=== PATIENT | male | born 1945 | race Hispanic/Latino ===

== ENCOUNTER 2016-08-25 13:22 | Emergency (ER) | payer MEDICARE ==
[2016-08-25] MEDS ORDERED: Sodium Chloride 0.9% 500 ML IV STA (13:25)
[2016-08-25 13:28] VITALS: BP 190/78; PULSE 93; RESP 18; TEMP 98.3; O2SAT 96; BMI 44.0
--- NOTE | 2016-08-25 13:32 | ED PDOC ---
Arrival/HPI - General Time Seen by Provider: 08/25/16 13:23 Historian: Patient - History of Present Illness Narrative History of Present Illness (Text): 08/25/16 13:26 71 year old male whose past medical history includes CABG, hypertension, diabetes, presents to the emergency department with elevated blood sugar today. Patient reports he checked his blood sugar right after a meal and it was found to be 480 at home. Denies fever, nausea, vomiting, chest pain, or other complaints. Time/Duration: 24 hours Symptom Onset: Gradual Symptom Course: Unchanged Modifying Factors (Text): None Past Medical History - Provider Review Nursing Documentation Reviewed: Yes - Infectious Disease Hx of Infectious Diseases: None - Tetanus Immunization Tetanus Immunization: Unknown - Cardiac Hx Hypertension: Yes Hx Pacemaker: No - Pulmonary Hx Respiratory Disorders: No - Neurological Hx Paralysis: No - HEENT Hx HEENT Disorder: No - Renal Hx Renal Disorder: No Hx Dialysis: No Other/Comment: bladder ca - Endocrine/Metabolic Hx Diabetes Mellitus Type 2: Yes - Hematological/Oncological Hx Blood Transfusions: No Hx Blood Transfusion Reaction: No - Integumentary Hx Dermatological Disorder: No - Musculoskeletal/Rheumatological Hx Musculoskeletal Disorders: No - Gastrointestinal Hx Gastrointestinal Disorders: No - Genitourinary/Gynecological Hx Genitourinary Disorders: No - Psychiatric Hx Depression: No Hx Emotional Abuse: No Hx Physical Abuse: No Hx Substance Use: No - Past Surgical History Past Surgical History: Non-Contributing - Surgical History Hx Cardiac Catheterization: Yes Hx Coronary Stent: Yes - Anesthesia Hx Anesthesia Reactions: No Hx Malignant Hyperthermia: No - Suicidal Assessment Feels Threatened In Home Enviroment: No Family/Social History - Physician Review Nursing Documentation Reviewed: Yes Family/Social History: Unknown Family HX Smoking Status: Former Smoker Hx Alcohol Use: No Hx Substance Use: No Hx Substance Use Treatment: No Allergies/Home Meds Allergies/Adverse Reactions: Allergies No Known Allergies Allergy (Verified 10/17/13 03:14) Home Medications: Home Meds Medication Instructions Recorded Confirmed Amlodipine Besylate 10 mg PO DAILY 07/10/13 08/01/14 Aspirin [Ecotrin] 81 mg PO DAILY 07/10/13 08/01/14 Insulin Detemir [Levemir] 80 unit SC HS 07/10/13 08/01/14 Insulin Lispro [humALOG] 60 units SC ACBD 07/10/13 08/01/14 Valsartan [Diovan] 320 mg PO DAILY 07/10/13 08/01/14 Clopidogrel [Plavix] 75 mg PO DAILY 08/18/13 08/01/14 Finasteride 5 mg PO DAILY 08/18/13 08/01/14 Dexlansoprazole [Dexilant] 60 mg PO DAILY 07/29/14 08/01/14 Atorvastatin [Lipitor] 40 mg PO DAILY 08/01/14 08/01/14 MetFORMIN [glucOPHAGE] 1,000 mg PO BID 08/01/14 08/01/14 [id number] Ethyl Esters [Lovaza] 1 gm PO BID 08/01/14 08/01/14 Pregabalin [Lyrica] 150 mg PO TID 08/01/14 08/01/14 Review of Systems - Physician Review All systems were reviewed & negative as marked: Yes - Review of Systems Constitutional: absent: Fevers Respiratory: absent: SOB Cardiovascular: absent: Chest Pain Gastrointestinal: absent: Nausea, Vomiting Physical Exam Vital Signs Reviewed: Yes Vital Signs Temp Pulse Resp BP Pulse Ox 08/25/16 13:26 98.3 F 93 H 18 190/78 H 96 Temperature: Afebrile Blood Pressure: Hypertensive Pulse: Regular Respiratory Rate: Normal Appearance: Positive for: Well-Appearing, Non-Toxic, Comfortable Pain Distress: None Mental Status: Positive for: Alert and Oriented X 3 - Systems Exam Head: Present: Atraumatic, Normocephalic Pupils: Present: PERRL Extroacular Muscles: Present: EOMI Conjunctiva: Present: Normal Mouth: Present: Moist Mucous Membranes Neck: Present: Normal Range of Motion Respiratory/Chest: Present: Clear to Auscultation, Good Air Exchange. No: Respiratory Distress, Accessory Muscle Use Cardiovascular: Present: Regular Rate and Rhythm, Normal S1, S2. No: Murmurs Abdomen: Present: Normal Bowel Sounds. No: Tenderness, Distention, Peritoneal Signs Back: Present: Normal Inspection Upper Extremity: Present: Normal Inspection. No: Cyanosis, Edema Lower Extremity: Present: Other (2 cm small wound to the right lower leg with minimal surrounding erythema.). No: Edema Neurological: Present: GCS=15, CN II-XII Intact, Speech Normal Skin: Present: Warm, Dry, Normal Color. No: Rashes Psychiatric: Present: Alert, Oriented x 3, Normal Insight, Normal Concentration Medical Decision Making ED Course and Treatment: Impression: 71 year old male whose past medical history includes CABG, hypertension, diabetes, presents to the emergency department with elevated blood sugar today. Plan: -- EKG -- Labs -- IV fluids -- Reassess and disposition Progress Notes: 08/25/16 13:33 Patient refusing labwork. Patient wants to be observed and have his sugar rechecked. 08/25/16 14:59 pt observed. blood sugar about the same, again requested pt be eval to r/o dka. refuses asking for d/c. pt advised risk of leaving. signs Leaving Against Medical Advice (AMA): The patient is choosing to leave against medical advice. I have personally explained to the patient that choosing to do so may result in permanent bodily harm or . I have discussed at great length that without further evaluation and monitoring there may be unforeseen circumstances and/or deterioration causing permanent bodily harm or as a result of their choice. The patient is alert, oriented, and shows the mental capacity to make clear decisions regarding the patients health care at this time. The patient continues to wish to leave against medical advice. In light of the patients decision to leave against medical advice, follow-up has been arranged and the patient is aware of the importance to following up as instructed. The patient has been advised that they should return to the emergency room immediately if they change their mind at any time, or if their condition begins to change or worsen in any way.. - Medication Orders Current Medication Orders: Discontinued Medications Sodium Chloride (Sodium Chloride 0.9%) 500 mls @ 999 mls/hr IV .Q31M STA Stop: 08/25/16 13:55 Last Admin: 08/25/16 13:30 Dose: Not Given Non-Admin Reason: Patient Refused - Scribe Statement The provider has reviewed the documentation as recorded by the Cassy Liao Provider Scribe Attestation: All medical record entries made by the Goyoibkaran were at my direction and personally dictated by me. I have reviewed the chart and agree that the record accurately reflects my personal performance of the history, physical exam, medical decision making, and the department course for this patient. I have also personally directed, reviewed, and agree with the discharge instructions and disposition. Disposition/Present on Arrival - Present on Arrival Any Indicators Present on Arrival: No History of DVT/PE: No History of Uncontrolled Diabetes: No Urinary Catheter: No History Surgical Site Infection Following: None - Disposition Have Diagnosis and Disposition been Completed?: Yes Diagnosis: Hyperglycemia, Cellulitis, Left against medical advice Disposition: AGAINST MEDICAL ADVICE Disposition Time: 15:00 Condition: UNKNOWN Discharge Instructions (ExitCare): Cellulitis (ED), Diabetic Hyperglycemia (ED) , Against Medical Advice (ED) Additional Instructions: please follow up with your doctor and diabetes doctor. return to emergency room with wrosening symptoms or concerns. you are leaving against medical advice. you are able to return at any point with any concern.
== END 2016-08-25 15:18 | disposition left against medical advice (07) ==
LOC: ED 13:22
DX: E11.65 Type 2 diabetes mellitus with hyperglycemia (principal); L03.115 Cellulitis of right lower limb

== ENCOUNTER 2017-01-09 19:23 | Observation (INO) | payer MEDICARE ==
[2017-01-09 20:19] LABS: BASO # 0.02 K/mm3 (0.0-2.0); BASO % 0.3 % (0.0-3.0); EOS # 0.1 (0.0-0.7); EOS % 1.3 % (1.5-5.0); GRAN # 4.55 (1.4-6.5); GRAN % 67.7 % (50.0-68.0); HEMATOCRIT 35.9 % (42.0-52.0); LYMPH # 1.5 (1.2-3.4); LYMPH % 22.1 % (22.0-35.0); MEAN CELL VOLUME 84.9 fl (80.0-105.0); MEAN CORPUSCULAR HEMOGLOBIN 28.1 pg (25.0-35.0); MEAN CORPUSCULAR HGB CONC 33.1 g/dl (31.0-37.0); MEAN PLATELET VOLUME 9.4 fl (7.0-11.0); MONO # 0.6 (0.1-0.6); MONO % 8.6 % (1.0-6.0); WHITE BLOOD COUNT 6.7 10^3/ul (4.5-11.0)
[2017-01-09 20:20] LABS: VENOUS BLOOD PH 7.36 (7.32-7.43)
[2017-01-09 20:29] LABS: ALB/GLOB RATIO 1.4 (1.1-1.8); ALKALINE PHOSPHATASE 108 U/L (38-126); ALT/SGPT 60 U/L (7-56); AST/SGOT 60 U/L (17-59); BILIRUBIN,TOTAL 0.4 mg/dL (0.2-1.3); BLOOD UREA NITROGEN 33 mg/dL (7-21); CALCIUM 9.4 mg/dL (8.4-10.5); CARBON DIOXIDE 28 mmol/L (21-33); CHLORIDE 101 mmol/L (98-107); GFR AFRICAN-AMERICAN > 60; GLUCOSE,RANDOM 241 mg/dL (70-110); POTASSIUM 3.8 mmol/L (3.6-5.0); SODIUM 137 mmol/L (132-148); TOTAL PROTEIN 7.1 g/dL (5.8-8.3)
[2017-01-09 20:41] LABS: TROPONIN I 0.05 ng/mL
--- NOTE | 2017-01-09 21:16 | ED PDOC ---
Arrival/HPI - General Chief Complaint: Chest Pain Time Seen by Provider: 01/09/17 19:26 Historian: Patient - History of Present Illness Narrative History of Present Illness (Text): 01/09/17 19:45 Jaziel Levine is a 71 year old male, whose past medical history includes hypertension, IDDM, hyperlipidemia, diabetic neuropathy, carotid endartectomy, and bladder cancer, who presents to the Emergency department complaining of shortness of breath, chest tightness, and a "fluttering" sensation in his chest today. Patient denies any fever, chills, nausea, vomiting, diarrhea, urinary symptoms, back pain, neck pain, headache, dizziness, or any other complaints. PMD: Dr. Carney Time/Duration: Other (today) Symptom Onset: Gradual Symptom Course: Unchanged Quality: Tightness Activities at Onset: Light Context: Home Past Medical History - Provider Review Nursing Documentation Reviewed: Yes - Infectious Disease Hx of Infectious Diseases: None - Tetanus Immunization Tetanus Immunization: Unknown - Cardiac Hx Hypertension: Yes Hx Pacemaker: No - Pulmonary Hx Respiratory Disorders: No - Neurological Hx Paralysis: No - HEENT Hx HEENT Disorder: No - Renal Hx Renal Disorder: No Hx Dialysis: No Other/Comment: bladder ca - Endocrine/Metabolic Hx Diabetes Mellitus Type 2: Yes - Hematological/Oncological Hx Blood Transfusions: No Hx Blood Transfusion Reaction: No - Integumentary Hx Dermatological Disorder: No - Musculoskeletal/Rheumatological Hx Musculoskeletal Disorders: No - Gastrointestinal Hx Gastrointestinal Disorders: No - Genitourinary/Gynecological Hx Genitourinary Disorders: No - Psychiatric Hx Depression: No Hx Emotional Abuse: No Hx Physical Abuse: No Hx Substance Use: No - Past Surgical History Past Surgical History: Non-Contributing - Surgical History Hx Cardiac Catheterization: Yes Hx Coronary Stent: Yes - Anesthesia Hx Anesthesia Reactions: No Hx Malignant Hyperthermia: No - Suicidal Assessment Feels Threatened In Home Enviroment: No Family/Social History - Physician Review Nursing Documentation Reviewed: Yes Family/Social History: Unknown Family HX Smoking Status: Former Smoker Hx Alcohol Use: No Hx Substance Use: No Hx Substance Use Treatment: No Allergies/Home Meds Allergies/Adverse Reactions: Allergies No Known Allergies Allergy (Verified 10/17/13 03:14) Home Medications: Home Meds Medication Instructions Recorded Confirmed Unobtainable 01/09/17 01/09/17 Review of Systems - Physician Review All systems were reviewed & negative as marked: Yes - Review of Systems Constitutional: Normal. absent: Fevers Eyes: Normal ENT: Normal Respiratory: SOB. absent: Cough Cardiovascular: Chest Pain, Palpitations Gastrointestinal: Normal. absent: Abdominal Pain, Diarrhea, Nausea, Vomiting Genitourinary Male: Normal. absent: Dysuria, Frequency, Hematuria, Urinary Output Changes Musculoskeletal: Normal. absent: Back Pain, Neck Pain Skin: Normal. absent: Rash Neurological: Normal. absent: Headache, Dizziness Endocrine: Normal Hemo/Lymphatic: Normal Psychiatric: Normal Physical Exam Vital Signs Reviewed: Yes Vital Signs Temp Pulse Resp BP Pulse Ox 01/09/17 22:45 63 16 159/76 H 98 01/09/17 21:45 60 16 134/69 97 01/09/17 20:45 86 20 146/92 H 97 01/09/17 19:36 98.3 F 74 18 158/89 H 98 Temperature: Afebrile Blood Pressure: Hypertensive Pulse: Regular Respiratory Rate: Normal Appearance: Positive for: Well-Appearing, Non-Toxic, Comfortable Pain Distress: None Mental Status: Positive for: Alert and Oriented X 3 - Systems Exam Head: Present: Atraumatic, Normocephalic Pupils: Present: PERRL Extroacular Muscles: Present: EOMI Conjunctiva: Present: Normal Mouth: Present: Moist Mucous Membranes Neck: Present: Normal Range of Motion Respiratory/Chest: Present: Clear to Auscultation, Good Air Exchange. No: Respiratory Distress, Accessory Muscle Use Cardiovascular: Present: Regular Rate and Rhythm, Normal S1, S2. No: Murmurs Abdomen: Present: Normal Bowel Sounds. No: Tenderness, Distention, Peritoneal Signs Back: Present: Normal Inspection Upper Extremity: Present: Normal Inspection. No: Cyanosis, Edema Lower Extremity: Present: Normal Inspection. No: Edema Neurological: Present: GCS=15, CN II-XII Intact, Speech Normal Skin: Present: Warm, Dry, Normal Color. No: Rashes Psychiatric: Present: Alert, Oriented x 3, Normal Insight, Normal Concentration Medical Decision Making ED Course and Treatment: 01/09/17 19:45 Impression: 71 year old male complaining of palpitations, chest tightness, and shortness of breath today. Plan: -- EKG -- CXR -- Labs, cardiac enzymes, BNP, VBG -- Reassess and disposition Prior Visits: Notes and results from previous visits were reviewed. On 08/25/2016, pt was seen in the Emergency department for hyperglycemia. Pt was d/c home. Progress Notes: Reviewed EKG, sinus rhythm at 80 bpm. 1st degree AV block. LAD. RBBB. Non- specific ST/T wave changes. 01/09/17 21:23 Reviewed radiology, CXR shows no acute processes. 01/09/17 22:[address] Carney, who is aware and agrees with plan. Accepts pt in to her service. Pt will be admitted to Telemetry for chest pain. Discussed results and hospital admission plan with pt, who is aware and verbalizes understanding. - Lab Interpretations Lab Results: 01/09/17 20:05 01/09/17 20:05 Lab Results 01/09/17 20:05: Sodium 137, Chloride 101, Potassium 3.8, Carbon Dioxide 28, Anion Gap 12, BUN 33 H, Creatinine 1.3, Est GFR ( Amer) > 60, Est GFR ( Non-Af Amer) 54, Random Glucose 241 H, Calcium 9.4, Total Bilirubin 0.4, AST 60 H, ALT 60 H, Alkaline Phosphatase 108, Lactate Dehydrogenase 595, Total Creatine Kinase 274 H, CK-MB (CK-2) 7.8 H, CK-MB (CK-2) % 2.8, Troponin I 0.05 D, NT-Pro-B Natriuret Pep 646 H, Total Protein 7.1, Albumin 4.2, Globulin 2.9, Albumin/Globulin Ratio 1.4 01/09/17 20:05: pO2 49, VBG pH 7.36, VBG pCO2 48.0, VBG HCO3 27.1, VBG Total CO2 28.6 H, VBG O2 Sat (Calc) 87.9 H, VBG Base Excess 1.0, VBG Potassium 3.7, Sodium 136.0, Chloride 102.0, Glucose 249 H, Lactate 1.3, FiO2 21.0, Venous Blood Potassium 3.7 01/09/17 20:05: WBC 6.7, RBC 4.23, Hgb 11.9 L, Hct 35.9 L, MCV 84.9, MCH 28.1, MCHC 33.1, RDW 14.0, Plt Count 217, MPV 9.4, Gran % 67.7, Lymph % (Auto) 22.1, [facility] % (Auto) 8.6 H, Eos % (Auto) 1.3 L, Baso % (Auto) 0.3, Gran # 4.55, Lymph # 1.5, [facility] # 0.6, Eos # 0.1, Baso # 0.02 I have reviewed the lab results: Yes - RAD Interpretation Radiology Orders: 01/09/17 19:47 CHEST PORTABLE [RAD] Stat Manufacturer: ED Physician - EKG Interpretation Interpreted by ED Physician: Yes Type: 12 lead EKG - Medication Orders Current Medication Orders: Discontinued Medications Acetaminophen (Tylenol 325mg Tab) 650 mg PO Q4H PRN PRN Reason: Pain, Mild (1-3) Acetaminophen (Tylenol 325mg Tab) 650 mg PO Q6H PRN PRN Reason: Fever >100.4 F Aspirin (Aspirin Chewable) 81 mg PO DAILY [facility] Last Admin: 01/10/17 09:27 Dose: 81 mg Atorvastatin Calcium (Lipitor) 20 mg PO DIN [facility] Last Admin: 01/10/17 04:59 Dose: 20 mg Clopidogrel Bisulfate (Plavix) 75 mg PO DAILY [facility] Last Admin: 01/10/17 09:27 Dose: 75 mg Finasteride (Proscar) 5 mg PO DAILY [facility] Last Admin: 01/10/17 09:27 Dose: 5 mg Insulin Detemir (Levemir) 20 unit SC [facility] Last Admin: 01/10/17 02:08 Dose: Not Given Non-Admin Reason: Patient Refused Insulin Human Lispro (Humalog High) 0 units SC [facility] PRN Reason: Protocol Last Admin: 01/10/17 11:56 Dose: 7 units MAR Blood Glucose Document 01/10/17 11:56 PHANT (Rec: 01/10/17 11:56 PHANT [id number]) Blood Glucose Finger Stick Blood Glucose (70-120) 274 Subcutaneous Administrations Document 01/10/17 11:56 PHANT (Rec: 01/10/17 11:56 PHANT [id number]) Injection Site MAR Injection Site Left Abdomen Charges for Administration # of Subcutaneous Administrations 1 Insulin Human Regular (Humulin R Low) 0 units SC [facility] PRN Reason: Protocol Insulin Lispro Protam/Lispro Human (Humalog Mix 75/25) 10 units SC ACBD [facility] Last Admin: 01/10/17 08:48 Dose: 10 unit MAR Blood Glucose Document 01/10/17 08:48 PHANT (Rec: 01/10/17 08:48 PHANT [id number]) Blood Glucose Finger Stick Blood Glucose (70-120) 163 Subcutaneous Administrations Document 01/10/17 08:48 PHANT (Rec: 01/10/17 08:48 PHANT [id number]) Injection Site MAR Injection Site Left Abdomen Charges for Administration # of Subcutaneous Administrations 1 Metoprolol Succinate (Toprol Xl) 50 mg PO BRK [facility] Last Admin: 01/10/17 08:14 Dose: 50 mg MAR Pulse and Blood Pressure Document 01/10/17 08:14 PHANT (Rec: 01/10/17 08:14 PHANT [id number]) Blood Pressure Blood Pressure (100/60-150/90) 147/75 Pantoprazole Sodium (Protonix Ec Tab) 40 mg PO 0600,1600 [facility] Last Admin: 01/10/17 04:59 Dose: 40 mg Pregabalin (Lyrica) 150 mg PO STAT STA Stop: 01/10/17 00:23 Last Admin: 01/10/17 00:35 Dose: 150 mg Pregabalin (Lyrica) 150 mg PO 0000,1200 [facility] Last Admin: 01/10/17 12:05 Dose: 150 mg Valsartan (Diovan) 320 mg PO DAILY [facility] Last Admin: 01/10/17 09:27 Dose: 320 mg - Goyoibe Statement The provider has reviewed the documentation as recorded by the Cassy Herring All medical record entries made by the Cassy were at my direction and personally dictated by me. I have reviewed the chart and agree that the record accurately reflects my personal performance of the history, physical exam, medical decision making, and the department course for this patient. I have also personally directed, reviewed, and agree with the discharge instructions and disposition. Disposition/Present on Arrival - Present on Arrival Any Indicators Present on Arrival: No History of DVT/PE: No History of Uncontrolled Diabetes: No Urinary Catheter: No History of Decub. Ulcer: No History Surgical Site Infection Following: None - Disposition Have Diagnosis and Disposition been Completed?: Yes Diagnosis: Dyspnea Disposition: HOSPITALIZED Disposition Time: 22:00 Condition: GOOD
[2017-01-09] MEDS ORDERED: Insulin Detemir 100 units/ml Vial (Levemir) SC SCH (23:45)
[2017-01-10 01:57] VITALS: BMI 29.0
[2017-01-10] MEDS ORDERED: Pantoprazole 40 mg EC Tab PO SCH (06:00)
[2017-01-10 06:41] VITALS: O2SAT 96
[2017-01-10] MEDS ORDERED: Insulin Lispro (humaLOG) MIX 75/25(10 ml) SC SCH (07:30)
[2017-01-10] MEDS ORDERED: Insulin Reg-LOW-Coverage SC SCH (07:30)
[2017-01-10 08:00] LABS: ALB/GLOB RATIO 1.4 (1.1-1.8); ALKALINE PHOSPHATASE 60 U/L (38-126); ALT/SGPT 51 U/L (7-56); AST/SGOT 51 U/L (17-59); BILIRUBIN,TOTAL 0.4 mg/dL (0.2-1.3); BLOOD UREA NITROGEN 27 mg/dL (7-21); CALCIUM 9.2 mg/dL (8.4-10.5); CARBON DIOXIDE 27 mmol/L (21-33); CHLORIDE 105 mmol/L (98-107); GFR AFRICAN-AMERICAN > 60; GLUCOSE,RANDOM 207 mg/dL (70-110); POTASSIUM 3.6 mmol/L (3.6-5.0); SODIUM 141 mmol/L (132-148); TOTAL PROTEIN 6.6 g/dL (5.8-8.3)
[2017-01-10] MEDS ORDERED: Metoprolol Succinate 50 mg XL Tab PO SCH (08:00)
[2017-01-10 08:09] LABS: FREE T4 0.83 ng/dL (0.78-2.19)
--- NOTE | 2017-01-10 08:18 | RAD ---
HISTORY: sob COMPARISON: 07/30/2014 FINDINGS: LUNGS: No active pulmonary disease. PLEURA: No significant pleural effusion identified, no pneumothorax apparent. CARDIOVASCULAR: Moderate cardiomegaly OSSEOUS STRUCTURES: Sternal wires VISUALIZED UPPER ABDOMEN: Normal. OTHER FINDINGS: None. IMPRESSION: No active disease
[2017-01-10 08:23] LABS: THYROID STIMULATING HORMONE 2.73 mIU/mL (0.46-4.68)
[2017-01-10] MEDS: Insulin Lispro (HUMAlog) HIGH Coverage SC SCH ×2 (08:25→11:56)
[2017-01-10 12:54] VITALS: BP 142/74; RESP 21; TEMP 98.4
--- NOTE | 2017-01-10 14:38 | CARD ---
APPROVED REPORT EKG Measurement Heart [id number] <Conclusion> Sinus rhythm with 1st degree AV block Left axis deviation Right bundle branch block Inferior infarct, age undetermined Abnormal ECG
[2017-01-10 16:12] VITALS: PULSE 72
--- NOTE | 2017-01-11 05:01 | DS ---
SUBJECTIVE: The patient is 71-year-old seen and examined, lying in bed, seem to be comfortable. No chest pain, no palpitation. The patient state that episode of palpation lasted for few minutes, he got nervous and came to ER, feeling well and anxious to go home. PHYSICAL EXAMINATION: VITAL SIGNS: He is afebrile. Pulse 65, respirations 20 and blood pressure 147/75. LUNGS: Bilateral fair airflow. No rhonchi or crackle. HEART: S1 and S2 audible. ABDOMEN: Soft, nontender. No rebound, no guarding. NEUROLOGICAL: The patient is awake, alert, oriented, communicative. LABORATORY DATA: WBC is 6.7, hemoglobin 11.9, hematocrit 35.9 and platelet 270. Chemistry: Sodium 141, potassium 3.6, chloride 105, CO2 is 27, BUN 27, creatinine 1.9, blood sugar 207. First set of troponin is negative. ASSESSMENT: 1. Noncardiac chest pain. 2. Palpitation. 3. Coronary artery disease, status post open heart surgery in 2013. 4. Insulin-dependent diabetes. 5. Morbid obesity. 6. Hyperlipidemia. 7. Status post carotid endarterectomy. PLAN: The patient is clinically stable, awaiting to be seen by salvage winder. I discussed with the nurse, if the patient is stable can be discharged later on today after seen by salvage winder. Dot Carney MD
--- NOTE | 2017-01-11 05:29 | CON ---
DATE: 01/10/2017 REQUESTING PHYSICIAN: Dot Carney MD REASON FOR CONSULTATION: Palpitations and dyspnea. HISTORY OF PRESENT ILLNESS: This is a 71-year-old man with known coronary artery disease, who underwent prior bypass surgery 3 years ago, who presents to the emergency room with complaints of dyspnea and palpitations. He denied any chest discomfort. He was advised admission for evaluation. He previously being seen by Dr. Iniguez and underwent cardiac catheterization initially and was advised bypass surgery. He initially refused, however, eventually did have this performed by Dr. Guy at [facility] several years ago. He also has a history of carotid disease and underwent left carotid endarterectomy in the past. His cardiac risk factors include hypertension, diabetes, and hyperlipidemia. PAST MEDICAL HISTORY: Notable for the problems mentioned above. He also has had bladder cancer for which he has reportedly disease-free for over 10 years. MEDICATIONS AT HOME: Uncertain. He apparently has variable compliance with these. ALLERGIES: NONE. SOCIAL HISTORY: He is a former smoker. He denies alcohol use. FAMILY HISTORY: Both parents are from age-related illness. REVIEW OF SYSTEMS: A 10-point review of system is notable for the problems mentioned above. He does have some intermittent leg edema as well as erythema. He has been seen by Dr. Rahul Guerrero recently and was told that he has venous insufficiency and has been advised local wound care and compression stocking use. PHYSICAL EXAMINATION: GENERAL: He is an obese middle-aged man. VITAL SIGNS: His blood pressure is 146/76 with a pulse of 66 and sinus, respirations are 14. He is afebrile. HEENT: Normocephalic and atraumatic. NECK: Supple. No JVD noted. CHEST: Bilateral scattered rhonchi heard. HEART: PMI displaced laterally with systolic murmur in the left sternal border. ABDOMEN: Soft, obese, nontender, normoactive bowel sounds. EXTREMITIES: No clubbing or cyanosis. 1+ ankle edema as noted. SKIN: Moderate to bilateral cellulitic changes noted in both lower extremities. PSYCHIATRIC: Normal mood and affect. NEUROLOGIC: Alert and oriented x3. No gross, motor, or sensory deficits appreciable. DIAGNOSTIC DATA: Chest x-ray reveals post sternotomy changes with clear lung marcus and moderate increased cardiac silhouette. Electrocardiogram reveals sinus rhythm with first degree AV block, right bundle-branch block, and left axis deviation, prior inferior wall myocardial infarction pattern appears present. His white count 6.7, hemoglobin and hematocrit are 11.9 and 35.9 with platelet count 217,000. Potassium 3.6, BUN and creatinine are 27 and 1.1. BNP 646. Troponin 0.05. Glucose 241. IMPRESSION: 1. Dyspnea, palpitation, etiology uncertain. Review of telemetry showed no evidence of significant dysrhythmias. He does admits to excess sodium intake recently. 2. Coronary artery disease, status post remote bypass surgery. No evidence of active chronic ischemia at present time. 3. Multiple cardiac risk factors given that hypertension, diabetes, hyperlipidemia, and remote tobacco abuse. 4. Questionable compliance with medications. 5. Chronic renal insufficiency and obesity. RECOMMENDATIONS: From cardiac standpoint, he appears stable discharge home at this time. If symptoms recur further evaluation can be planned and an outpatient stress test and echocardiogram can be arranged as needed. The need for compliance with his medications was encouraged and he should be on aspirin, beta-noé, standard therapy, and angiotensin receptor noé at this time. The need for weight loss, compression stocking use, and strict control of risk factors was discussed with him. Thank you for the consultation. Isaac Zendejas MD
--- NOTE | 2017-01-12 09:07 | HP ---
HISTORY OF PRESENT ILLNESS: The patient is 71-year-old known to me from multiple previous admissions. He came to the emergency room because of palpitation. He has chest pain and fluttering. He did have shortness of breath with some chest pressure, which started earlier today, he thought it is going to go away, but was having above named symptoms intermittently. He denies any fever, chills. No history of nausea, vomiting. No cough. No congestion. No hemoptysis. No hematemesis. PAST MEDICAL HISTORY: He has significant past medical history for: 1. Hypertension. 2. Insulin-dependent diabetes. 3. Hyperlipidemia. 4. Status post left carotid endarterectomy. 5. History of cancer bladder, status post BCG treatment. 6. History of diabetic neuropathy. 7. Morbid obesity. 8. Bilateral carpal tunnel syndrome. 9. Lumbosacral radiculopathy. ALLERGIES: NO ALLERGIES TO ANY MEDICATIONS. MEDICATIONS: At home, he is on gabapentin, metoprolol 25 mg b.i.d. He is on Lantus and Humalog and even atorvastatin. SOCIAL HISTORY: He is . Lives with his . History of heavy smoking in the past. REVIEW OF SYSTEMS: Significant for chest pain and pressure and palpitation. PHYSICAL EXAMINATION GENERAL: He is awake, alert, oriented, communicative. VITAL SIGNS: He is afebrile, pulse 63, respirations 16 and blood pressure 159/76. LUNGS: Bilateral fair airflow. No rhonchi or crackle. HEART: S1 and S2, audible. ABDOMEN: Soft, obese and nontender. No rebound. No guarding. NEUROLOGIC: He is awake, alert, oriented, able to move all extremities. Bilateral leg no edema. LABORATORY DATA: WBC 6.7, hemoglobin 11.9, hematocrit 35.9 and platelets 217. Chemistry; sodium 137, potassium 3.8, chloride 101, CO2 of 28, BUN 33 and creatinine 1.3. Blood sugar of 241, calcium 9.4. AST 60, ALT 60, alkaline phosphatase 105. CPK 274, MB 7.8, troponin 0.05. BNP is 646. unremarkable. ASSESSMENT: 1. Chest pain, rule out chronic ischemia. 2. Coronary artery disease, status post open heart surgery 3 years ago. 3. Status post right carotid endarteriectomy. 4. Hypertension. 5. Hyperlipidemia. 6. Morbid obesity. 7. Insulin-dependent diabetes. PLAN: The patient will be admitted, the patient will be placed on observation. We will follow up cardiac enzyme. Resume his medication. Monitor blood sugar. Cardiology evaluation by Dr. Cabrera has been requested. We will followup the patient in a.m. Dot Carney MD
== END 2017-01-10 16:07 | disposition home or self-care (01) ==
LOC: ED 19:23 → ERH 22:56 → INTOOBSV 22:56 → 2RSO 01-10 00:01
PROVIDERS: ADMIT Internal Medicine; ATTEND Internal Medicine
DX: R07.89 Other chest pain (principal); I25.10 Atherosclerotic heart disease of native coronary artery without angina pectoris; E11.22 Type 2 diabetes mellitus with diabetic chronic kidney disease; E11.40 Type 2 diabetes mellitus with diabetic neuropathy, unspecified; E78.5 Hyperlipidemia, unspecified; E66.01 Morbid (severe) obesity due to excess calories; Z79.4 Long term (current) use of insulin; I12.9 Hypertensive chronic kidney disease with stage 1 through stage 4 chronic kidney disease, or unspecified chronic kidney disease; N18.9 Chronic kidney disease, unspecified; Z85.51 Personal history of malignant neoplasm of bladder; Z87.891 Personal history of nicotine dependence; Z91.19 Patient's noncompliance with other medical treatment and regimen; Z95.1 Presence of aortocoronary bypass graft; Z95.5 Presence of coronary angioplasty implant and graft; G56.03 Carpal tunnel syndrome, bilateral upper limbs; M54.17 Radiculopathy, lumbosacral region; Z68.29 Body mass index [BMI] 29.0-29.9, adult
CPT/HCPCS: 36415; 71010; 80053; 82550; 82553; 82803; 82948; 83036; 83615; 83880; 84439; 84443; 84484; 85025; 93005; 99285; G0378

== ENCOUNTER 2017-11-30 16:05 | Inpatient (IN) | payer MEDICARE, OTHER ==
[2017-11-30 16:05] VITALS: BMI 29.0
[2017-11-30] MEDS ORDERED: Sodium Chloride 0.9% 500 ML IV STA (17:10)
[2017-11-30 17:33] LABS: BASO # 0.02 K/mm3 (0.0-2.0); BASO % 0.4 % (0.0-3.0); EOS # 0.1 (0.0-0.7); EOS % 1.2 % (1.5-5.0); GRAN # 4.07 (1.4-6.5); GRAN % 71.5 % (50.0-68.0); LYMPH # 1.1 (1.2-3.4); LYMPH % 18.8 % (22.0-35.0); MEAN CELL VOLUME 85.8 fl (80.0-105.0); MEAN CORPUSCULAR HEMOGLOBIN 27.8 pg (25.0-35.0); MEAN CORPUSCULAR HGB CONC 32.4 g/dl (31.0-37.0); MEAN PLATELET VOLUME 9.6 fl (7.0-11.0); MONO # 0.5 (0.1-0.6); MONO % 8.1 % (1.0-6.0); RBC 3.95 10^6/uL (3.5-6.1); RED CELL DISTRIBUTION WIDTH 13.9 % (11.5-14.5); WHITE BLOOD COUNT 5.7 10^3/ul (4.5-11.0)
[2017-11-30 17:42] LABS: INR 1.1; PARTIAL THROMBOPLASTIN TIME 29.1 Seconds (25.1-36.5); PROTHROMBIN TIME 12.6 SECONDS (9.4-12.5)
[2017-11-30 17:43] LABS: VENOUS BLOOD GAS BASE EXCESS -0.6 mmol/L (0.0-2.0); VENOUS BLOOD GAS PO2 34 mm/Hg (30-55); VENOUS BLOOD PH 7.27 (7.32-7.43)
[2017-11-30 17:50] LABS: CALCIUM 9.3 mg/dL (8.4-10.5)
--- NOTE | 2017-11-30 17:55 | ED PDOC ---
Arrival/HPI - General Historian: Patient - General Chief Complaint: Dizziness/Lightheaded Time Seen by Provider: 11/30/17 16:48 - History of Present Illness Narrative History of Present Illness (Text): 11/30/17 17:07 A 72 year old male, whose past medical history includes Diabetes type 2, presents to the emergency department complaining of dizziness that occurred earlier today. Patient reports earlier he was eating lunch at a restaurant, and upon leaving, he began experiencing dizziness in a wobbly type of sensation. Witnessed by a friend, he/she called for an ambulance and had patient taken to the Emergency room immediately. He states he is not compliant with Levomir medication. Currently Patient denies fever, chills, headache, chest pain, shortness of breath, palpitations, GI symptoms, any urinary symptoms, or any other complaints at this time. Also, patient mentions fingerstick was taken and measured to 220. PMD: Dr. Carney (Rowan Smith PA-C) Past Medical History - Provider Review Nursing Documentation Reviewed: Yes - Infectious Disease Hx of Infectious Diseases: None - Tetanus Immunization Tetanus Immunization: Unknown - Cardiac Hx Cardiac Disorders: Yes Hx Hypertension: Yes - Pulmonary Hx Respiratory Disorders: No - Neurological Hx Neurological Disorder: No - HEENT Hx HEENT Disorder: No - Renal Hx Renal Disorder: No - Endocrine/Metabolic Hx Endocrine Disorders: Yes Hx Diabetes Mellitus Type 2: Yes - Hematological/Oncological Hx Blood Disorders: Yes Hx Cancer: Yes - Integumentary Hx Dermatological Disorder: No - Musculoskeletal/Rheumatological Hx Musculoskeletal Disorders: No - Gastrointestinal Hx Gastrointestinal Disorders: No - Genitourinary/Gynecological Hx Genitourinary Disorders: No - Psychiatric Hx Psychophysiologic Disorder: No Hx Substance Use: No - Past Surgical History Past Surgical History: Non-Contributing - Surgical History Hx Cardiac Catheterization: Yes Hx Coronary Stent: Yes Other/Comment: VASCULAR - Anesthesia Hx Anesthesia: Yes - Suicidal Assessment Feels Threatened In Home Enviroment: No Family/Social History - Physician Review Nursing Documentation Reviewed: Yes Family/Social History: No Known Family HX Smoking Status: Former Smoker Hx Alcohol Use: No Hx Substance Use: No Hx Substance Use Treatment: No Allergies/Home Meds Allergies/Adverse Reactions: Allergies No Known Allergies Allergy (Verified 11/30/17 16:21) Home Medications: Home Meds Medication Instructions Recorded Confirmed Aspirin [Aspirin Chewable] 81 mg PO DAILY 12/02/17 12/02/17 Atorvastatin Calcium [Atorvastatin 40 mg PO HS 12/02/17 12/02/17 Calcium] Clobetasol 0.05% [Temovate] 15 gm TOP TID 12/02/17 12/02/17 Clopidogrel [Plavix] 75 mg PO DAILY 12/02/17 12/02/17 Fenofibrate [Tricor] 145 mg PO DAILY 12/02/17 12/02/17 Finasteride [Proscar] 5 mg PO DAILY 12/02/17 12/02/17 K-Dur 10 Meq Er Tab 10 meq PO DAILY 12/02/17 12/02/17 Ketoconazole 2% Shampoo [Nizoral] 120 ml TOP Q2W 12/02/17 12/02/17 Lasix 40 mg PO DAILY 12/02/17 12/02/17 Levemir 80 units SQ HS 12/02/17 12/02/17 Losartan/Hydrochlorothiazide 12.5 mg PO DAILY 12/02/17 12/02/17 Metoprolol Succinate 100 mg PO DAILY 12/02/17 12/02/17 Pantoprazole [Protonix EC Tab] 40 mg PO DAILY 12/02/17 12/02/17 amLODIPine [Norvasc] 10 mg PO DAILY 12/02/17 12/02/17 humALOG 60 units SQ TID 12/02/17 12/02/17 metOLazone [Zaroxolyn] 2.5 mg PO DAILY 12/02/17 12/02/17 Review of Systems - Physician Review All systems were reviewed & negative as marked: Yes - Review of Systems Constitutional: absent: Fevers, Night Sweats Respiratory: absent: SOB Cardiovascular: absent: Chest Pain, Palpitations Gastrointestinal: absent: Abdominal Pain, Stool Changes, Constipation, Diarrhea , Nausea, Vomiting, Appetite Changes, Hematochezia, Hematemesis Genitourinary Male: absent: Dysuria, Frequency, Hematuria, Urinary Output Changes Neurological: Dizziness (earlier today, not now while here in the ER). absent: Headache Physical Exam Vital Signs Reviewed: Yes Temperature: Afebrile Blood Pressure: Normal Pulse: Regular Respiratory Rate: Normal Appearance: Positive for: Well-Appearing, Non-Toxic, Comfortable, Other (obese) Pain Distress: None Mental Status: Positive for: Alert and Oriented X 3 Finger Stick Blood Glucose: 142 - Systems Exam Head: Present: Atraumatic, Normocephalic Pupils: Present: PERRL Extroacular Muscles: Present: EOMI Conjunctiva: Present: Normal Mouth: Present: Dry Neck: Present: Normal Range of Motion Respiratory/Chest: Present: Clear to Auscultation, Good Air Exchange, Other ( surgical sternal scar). No: Respiratory Distress, Accessory Muscle Use Cardiovascular: Present: Regular Rate and Rhythm, Normal S1, S2. No: Murmurs Abdomen: No: Tenderness, Distention, Peritoneal Signs Back: Present: Normal Inspection Upper Extremity: Present: Normal Inspection. No: Cyanosis, Edema Lower Extremity: Present: Edema (+1 pitting edema bilaterally), Tenderness ( mild tenderness to palpation to distal aspects of bilateral shins.), Erythema. No: NORMAL PULSES (weak distal pulses) Neurological: Present: GCS=15, CN II-XII Intact, Speech Normal Skin: Present: Warm, Dry, Normal Color. No: Rashes Psychiatric: Present: Alert, Oriented x 3, Normal Insight, Normal Concentration Vital Signs Temp Pulse Resp BP Pulse Ox 11/30/17 23:04 98.7 F 77 18 128/72 100 11/30/17 21:15 89 17 132/76 99 11/30/17 18:22 77 18 132/75 98 11/30/17 16:31 98.6 F 75 18 111/61 96 Medical Decision Making - Lab Interpretations I have reviewed the lab results: Yes ED Course and Treatment: 11/30/17 17:11 Impression: 72 year old male with dizziness from earlier today, however here in the Emergency room he is asymptomatic at this time. Plan: -- EKG -- Head CT -- Chest X-ray -- Labs -- Blood Culture -- IV Fluids -- Urinalysis -- Reassess and disposition Progress Notes: EKG: Atrial arrhythmia at 80 bpm, LAD, RBBB, (+) acute T inversions in leads V2- -V4 not seen in prior EKG on 01/10/17, as read by JIMI and ER . CXR : NAD, as read by JIMI Labs reviewed : wbc normal, lactate 1.5, glucose 149, bnp 728, bun 50/creat 2.4 (elevated from prior labs done in 12/2016), trop (-), UA +protien/glucose/trace blood. CT head without contrast : Limited study. Evidence of chronic encephalomalacia involving the left frontal lobe. Generalized atrophy. On reevaluation, patient reports improvement of symptoms, denies any headache, dizziness, chest pain, palpitations. On exam, patient remains awake alert and oriented 3 in no acute distress. Repeat neuro exam shows no focal findings. Diagnostic results discussed with the patient in great detail. Based on history, exam and diagnostic results plan will be for observation. Second troponin ordered. Patient agrees with plan for further inpatient obs. 11/30/17 20:46 Case d/w Dr. Carney agrees with observation stay. Consult to the soap grinder Dr. Edmonds (which the patient agrees to) ordered. (Luis ROTHMAN,Rowan Wellington) - Lab Interpretations Microbiology Results: Microbiology Results 11/30/17 17:10 Blood Blood Culture - Preliminary NO GROWTH AFTER 3 DAYS 11/30/17 16:45 Blood Blood Culture - Preliminary NO GROWTH AFTER 3 DAYS Lab Results: 12/01/17 05:45 12/01/17 05:45 Lab Results 12/01/17 16:22: POC Glucose (mg/dL) 344 H 12/01/17 11:55: POC Glucose (mg/dL) 296 H 12/01/17 05:45: Free T4 0.84, TSH 3rd Generation 2.95 12/01/17 05:45: Sodium 138, Chloride 103, Potassium 4.0, Carbon Dioxide 25, Anion Gap 14, BUN 45 H, Creatinine 2.0 H, Est GFR ( Amer) 40, Est GFR ( Non-Af Amer) 33, Random Glucose 192 H, Calcium 9.2, Total Bilirubin 0.4, AST 45 , ALT 26, Alkaline Phosphatase 56, Total Protein 7.2, Albumin 4.0, Globulin 3.2 , Albumin/Globulin Ratio 1.3 12/01/17 05:45: WBC 6.1, RBC 3.94, Hgb 10.8 L, Hct 33.7 L, MCV 85.5, MCH 27.4, MCHC 32.0, RDW 14.2, Plt Count 204, MPV 9.9, Gran % 61.7, Lymph % (Auto) 28.3, [place] % (Auto) 7.4 H, Eos % (Auto) 2.3, Baso % (Auto) 0.3, Gran # 3.73, Lymph # ( Auto) 1.7, [place] # (Auto) 0.5, Eos # (Auto) 0.1, Baso # (Auto) 0.02 12/01/17 00:05: Troponin I 0.03 11/30/17 19:25: Urine Color Light yellow, Urine Appearance Clear, Urine pH 6.0, Ur Specific [place] 1.025, Urine Protein 100 H, Urine Glucose (UA) 250 H, Urine Ketones Negative, Urine Blood Trace-intact H, Urine Nitrate Negative, Urine Bilirubin Negative, Urine Urobilinogen 0.2, Ur Leukocyte Esterase Negative, Urine RBC 0 - 2, Urine WBC Negative, Ur Epithelial Cells 0 - 2, Urine Bacteria Neg 11/30/17 17:28: POC Glucose (mg/dL) 142 H 11/30/17 16:45: Sodium 139, Chloride 100, Potassium 3.9, Carbon Dioxide 26, Anion Gap 16, BUN 50 H, Creatinine 2.4 H, Est GFR ( Amer) 32, Est GFR ( Non-Af Amer) 27, Random Glucose 149 H, Calcium 9.3, Magnesium 1.7, Lactate Dehydrogenase 506, Total Creatine Kinase 204, Troponin I 0.03 D, NT-Pro-B Natriuret Pep 728 H 11/30/17 16:45: pO2 34, VBG pH 7.27 L, VBG pCO2 60.0, VBG HCO3 27.6, VBG Total CO2 29.4 H, VBG O2 Sat (Calc) 65.8 H, VBG Base Excess -0.6 L, VBG Potassium 3.8 , Sodium 137.0, Chloride 101.0, Glucose 148 H, Lactate 1.5, FiO2 21.0, Venous Blood Potassium 3.8 11/30/17 16:45: PT 12.6 H, INR 1.10, APTT 29.1 11/30/17 16:45: WBC 5.7, RBC 3.95, Hgb 11.0 L, Hct 33.9 L, MCV 85.8, MCH 27.8, MCHC 32.4, RDW 13.9, Plt Count 207, MPV 9.6, Gran % 71.5 H, Lymph % (Auto) 18.8 L, [place] % (Auto) 8.1 H, Eos % (Auto) 1.2 L, Baso % (Auto) 0.4, Gran # 4.07, Lymph # (Auto) 1.1 L, [place] # (Auto) 0.5, Eos # (Auto) 0.1, Baso # (Auto) 0.02 - RAD Interpretation Radiology Orders: 11/30/17 08:24 CAROTID & VERTEBRAL DUPLEX [US] Urgent 11/30/17 17:02 CHEST TWO VIEWS (PA/LAT) [RAD] Stat 11/30/17 17:03 HEAD W/O CONTRAST [CT] Stat - Medication Orders Current Medication Orders: Discontinued Medications Aspirin (Ecotrin) 81 mg PO DAILY [facility] Last Admin: 12/02/17 09:52 Dose: 81 mg Atorvastatin Calcium (Lipitor) 40 mg PO DIN [facility] Last Admin: 12/02/17 17:35 Dose: 40 mg Cefpodoxime Proxetil (Vantin) 200 mg PO Q12 CLAUDIA Stop: 12/05/17 10:59 Last Admin: 12/02/17 09:52 Dose: 200 mg Clopidogrel Bisulfate (Plavix) 75 mg PO DAILY [facility] Last Admin: 12/02/17 15:37 Dose: 75 mg Furosemide (Lasix) 40 mg IVP DAILY [facility] Last Admin: 12/02/17 09:55 Dose: 40 mg MAR Blood Pressure Document 12/02/17 09:55 (Rec: 12/02/17 09:55 [id number] Blood Pressure Blood Pressure (100/60-150/90) 152/76 IVP Administration Document 12/02/17 09:55 (Rec: 12/02/17 09:55 [id number] Charges for Administration # of IVP Administrations 1 Sodium Chloride (Sodium Chloride 0.9%) 500 mls @ 500 mls/hr IV .Q1H STA Stop: 11/30/17 18:09 Last Admin: 11/30/17 17:24 Dose: 500 mls/hr eMAR Start Stop Document 11/30/17 17:24 LEXY (Rec: 11/30/17 17:25 LEXY [id number]) Intravenous Solution Start Date 11/30/17 Start Time 17:24 End Date 11/30/17 End time 18:00 Total Infusion Time 36 Ceftriaxone Sodium (Rocephin 1 Gram Ivpb) 1 gm in 100 mls @ 100 mls/hr IVPB DAILY [facility] PRN Reason: Protocol Stop: 12/05/17 10:59 Last Admin: 12/01/17 09:13 Dose: 100 mls/hr eMAR Start Stop Document 12/01/17 09:13 CD (Rec: 12/01/17 09:13 CD [place] [id number]) Intravenous Solution Start Date 12/01/17 Start Time 09:13 Insulin Detemir (Levemir) 30 unit SC HS [facility] Last Admin: 12/01/17 22:50 Dose: 30 units MAR Blood Glucose Document 12/01/17 22:50 ID (Rec: 12/01/17 22:50 ID [place] [id number]) Blood Glucose Finger Stick Blood Glucose (70-120) 382 Subcutaneous Administrations Document 12/01/17 22:50 ID (Rec: 12/01/17 22:50 ID [place] [id number]) Injection Site MAR Injection Site Right Abdomen Charges for Administration # of Subcutaneous Administrations 1 Insulin Human Lispro (Humalog High) 0 units SC ACHS [facility] PRN Reason: Protocol Last Admin: 12/02/17 17:35 Dose: 7 units MAR Blood Glucose Document 12/02/17 17:35 KL (Rec: 12/02/17 17:36 [place] [id number]) Blood Glucose Finger Stick Blood Glucose (70-120) 253 Subcutaneous Administrations Document 12/02/17 17:35 KL (Rec: 12/02/17 17:36 KL [place] [id number]) Injection Site MAR Injection Site Right Arm Charges for Administration # of Subcutaneous Administrations 1 Metoprolol Succinate (Toprol Xl) 25 mg PO BID [facility] Last Admin: 12/02/17 17:35 Dose: 25 mg MAR Pulse and Blood Pressure Document 12/02/17 17:35 KL (Rec: 12/02/17 17:35 KL [place] [id number]) Pulse Pulse Rate (60-90) 80 Blood Pressure Blood Pressure (100/60-150/90) 145/81 Pregabalin (Lyrica) 75 mg PO BID [facility] Last Admin: 12/02/17 17:35 Dose: 75 mg - PA / ORACLE [employer] DEVELOPER / Resident Statement MD/DO has reviewed & agrees with the documentation as recorded. - Scribe Statement The provider has reviewed the documentation as recorded by the Scribe - Scribe Statement Philippe Baum Provider Scribe Provider Scribe Attestation: All medical record entries made by the Scribe were at my direction and personally dictated by me. I have reviewed the chart and agree that the record accurately reflects my personal performance of the history, physical exam, medical decision making, and the department course for this patient. I have also personally directed, reviewed, and agree with the discharge instructions and disposition. (Luis ROTHMAN,Rowan Wellington) Disposition/Present on Arrival - Present on Arrival Any Indicators Present on Arrival: Yes History of DVT/PE: No History of Uncontrolled Diabetes: Yes Urinary Catheter: No History of Decub. Ulcer: No History Surgical Site Infection Following: None - Disposition Have Diagnosis and Disposition been Completed?: Yes Disposition Time: 20:30 Patient Plan: Observation - Disposition Diagnosis: Bilateral lower leg cellulitis, Acute kidney injury, Acute electrocardiogram changes Disposition: HOSPITALIZED Condition: STABLE
[2017-11-30 18:01] LABS: TROPONIN I 0.03 ng/mL
--- NOTE | 2017-11-30 18:27 | CT ---
Date of service: 11/30/2017 PROCEDURE: CT HEAD WITHOUT CONTRAST. HISTORY: dizziness COMPARISON: None available. TECHNIQUE: Axial computed tomography images were obtained through the head/brain without intravenous contrast. Radiation dose: Total exam DLP = 1508.77 mGy-cm. This CT exam was performed using one or more of the following dose reduction techniques: Automated exposure control, adjustment of the mA and/or kV according to patient size, and/or use of iterative reconstruction technique. FINDINGS: Examination limited by streak/motion artifact. HEMORRHAGE: No intracranial hemorrhage. BRAIN: Diffuse atrophy with prominence of the ventricles and sulci noted. No mass effect or edema. Hypodensity involving the left frontal lobe consistent with chronic encephalomalacia. Dense intracranial atherosclerosis. Please note that MRI with diffusion imaging is more sensitive in the detection of acute ischemic event. VENTRICLES: No hydrocephalus. CALVARIUM: Unremarkable. PARANASAL SINUSES: Unremarkable as visualized. No significant inflammatory changes. MASTOID AIR CELLS: Unremarkable as visualized. No inflammatory changes. OTHER FINDINGS: None. IMPRESSION: Limited study. Evidence of chronic encephalomalacia involving the left frontal lobe. Generalized atrophy.
--- NOTE | 2017-11-30 18:29 | CARD ---
APPROVED REPORT Date of service: 11/30/2017 EKG Measurement Heart [id number] <Conclusion> Possible Atrial flutter with variable AV block Left axis deviation Right bundle branch block Abnormal ECG
[2017-11-30 19:39] LABS: URINE APPEARANCE CLEAR (CLEAR); URINE BILIRUBIN NEGATIVE (NEGATIVE); URINE BLOOD TRACE-INTACT (NEGATIVE); URINE COLOR LIGHT YELLOW (YELLOW); URINE GLUCOSE (UA) 250 mg/dL (NEGATIVE); URINE LEUKOCYTE ESTERASE NEGATIVE Leu/uL (NEGATIVE); URINE PROTEIN 100 mg/dL (<30 mg/dL); URINE UROBILINOGEN 0.2 E.U./dL (<1 E.U./dL)
[2017-11-30 19:46] LABS: URINE BACTERIA NEG (NEG); URINE EPITHELIAL CELLS 0 - 2 /hpf (0-5); URINE RBC 0 - 2 /hpf (0-2); URINE WBC NEGATIVE /hpf (0-6)
[2017-11-30] MEDS: Insulin Lispro (HUMAlog) HIGH Coverage SC SCH (22:20)
[2017-12-01] MEDS: Insulin Detemir 100 units/ml Vial (Levemir) SC SCH ×2 (04:22→22:50)
--- NOTE | 2017-12-01 05:48 | HP ---
HISTORY OF PRESENT ILLNESS: The patient is a 72-year-old, known to me from multiple previous admissions. The patient was recently seen in the office last week because of increasing leg swelling and had erythema and developing blister. The patient was given prescription of Lasix and Bactrim and he was advised to follow up in a week. The patient states that he was in a restaurant after lunch, when he got out, he felt dizzy, lightheaded, and unstable gait and felt weak, so he came to the emergency room for further evaluation. Denies having any fever or chills. Denies any nausea or vomiting. No hemoptysis. No hematemesis. No other urinary symptoms. The patient is very noncompliant with his diet and his medication. He does not follow up with me or sales demonstrator regularly either. PAST MEDICAL HISTORY: He has significant past medical history of; 1. Open heart surgery more than 4 years ago, he had triple bypass. 2. Poorly controlled insulin-dependent diabetes. 3. Hypertension. 4. Hyperlipidemia. 5. Diabetic neuropathy. 6. Morbid obesity. 7. History of CA prostate status post transurethral resection. ALLERGIES: HE IS NOT ALLERGIC TO ANY MEDICATIONS. MEDICATION AT HOME: He is on metoprolol 25 twice a day and Lyrica 75 twice a day. He is on Humalog and Levemir. He is on aspirin 81 daily and lately, he was on Lasix 40 IV daily and he was on Bactrim for his leg cellulitis. SOCIAL HISTORY: He used to smoke in remote past. Socially drinks. Lives with his and he is . REVIEW OF SYSTEMS: Significant for feeling lightheaded, otherwise, doing well. PHYSICAL EXAMINATION: GENERAL: He is awake, alert, oriented, and communicative. VITAL SIGNS: Afebrile, pulse 75, respirations 18, blood pressure 132/75. LUNGS: Bilateral fair airflow. No rhonchi or crackle. HEART: S1 and S2, audible. ABDOMEN: Soft, obese, nontender. No rebound. No guarding. NEUROLOGIC: He is awake, alert, oriented, communicative, moves all extremities. EXTREMITIES: Bilateral legs, he has slight erythema and still some edema. LABORATORY DATA: WBC 5.7, hemoglobin 11, hematocrit 33.9, and platelet of 207. PT 12.6 and INR 1.1. Chemistry; sodium 139, potassium 3.9, chloride 100, CO2 of 26, BUN 50, creatinine 2.4, blood sugar of 142. BNP 728. Urinalysis shows trace blood, 250 glucose, and positive protein. The patient had CT scan of the head done that is unremarkable. EKG has possible atrial flutter with variable AV block and right bundle-branch block. ASSESSMENT: 1. Dizziness, near syncope. 2. Hypertension. 3. Coronary artery disease, status post open heart surgery. 4. Insulin-dependent diabetes. 5. Mild renal insufficiency, probably secondary to oral diuretic that was recently given for his leg edema. PLAN: The patient will be placed in observation. We will order for carotid Doppler, order for echocardiogram, resume his medication. We will follow up patient in a.m. Dot Carney MD
[2017-12-01 06:26] VITALS: O2SAT 96
[2017-12-01 06:45] LABS: BASO # 0.02 K/mm3 (0.0-2.0); BASO % 0.3 % (0.0-3.0); EOS # 0.1 (0.0-0.7); EOS % 2.3 % (1.5-5.0); GRAN # 3.73 (1.4-6.5); GRAN % 61.7 % (50.0-68.0); HEMOGLOBIN 10.8 g/dL (14.0-18.0); LYMPH # 1.7 (1.2-3.4); LYMPH % 28.3 % (22.0-35.0); MEAN CELL VOLUME 85.5 fl (80.0-105.0); MEAN CORPUSCULAR HEMOGLOBIN 27.4 pg (25.0-35.0); MEAN PLATELET VOLUME 9.9 fl (7.0-11.0); MONO # 0.5 (0.1-0.6); MONO % 7.4 % (1.0-6.0); RBC 3.94 10^6/uL (3.5-6.1); RED CELL DISTRIBUTION WIDTH 14.2 % (11.5-14.5); WHITE BLOOD COUNT 6.1 10^3/ul (4.5-11.0)
[2017-12-01 06:51] LABS: ALB/GLOB RATIO 1.3 (1.1-1.8); CALCIUM 9.2 mg/dL (8.4-10.5)
[2017-12-01 07:11] LABS: FREE T4 0.84 ng/dL (0.78-2.19)
[2017-12-01] MEDS: Insulin Lispro (HUMAlog) HIGH Coverage SC SCH ×4 (08:24→22:49)
--- NOTE | 2017-12-01 08:25 | RAD ---
Date of service: 11/30/2017 HISTORY: LE edema COMPARISON: 01/09/2017 TECHNIQUE: Chest PA and lateral FINDINGS: LUNGS: No active pulmonary disease. PLEURA: No significant pleural effusion identified. No pneumothorax apparent. CARDIOVASCULAR: Moderate cardiomegaly OSSEOUS STRUCTURES: Sternal wires VISUALIZED UPPER ABDOMEN: Normal. OTHER FINDINGS: None. IMPRESSION: No active disease.
[2017-12-01] MEDS: Metoprolol Succinate 25 mg XL Tab PO SCH ×2 (09:14→17:36)
--- NOTE | 2017-12-01 09:54 | US ---
PROCEDURE: Bilateral carotid artery duplex ultrasound HISTORY: Carotid stenosis PHYSICIAN(S): Rahul Guerrero MD. TECHNIQUE: Duplex sonography and color-flow Doppler were used to evaluate the carotid bifurcations and limited segments of the vertebral arteries bilaterally. FINDINGS: There is moderate to extensive heterogeneous plaque noted at the carotid bifurcations bilaterally, greater on the left than the right. The origin of the right internal carotid artery is somewhat obscured by calcium. The peak systolic velocity in the proximal right internal carotid artery is 86 cm/sec. This corresponds to a 20 to 39% proximal right ICA stenosis. Mildly elevated systolic velocities are noted in the proximal right external carotid artery. There is antegrade flow in the small right vertebral artery. The peak systolic velocity in the proximal left internal carotid artery is 540 cm/sec. The end-diastolic velocity at this location is 1 and 60 cm/second. This corresponds to a critical 80-99 percent proximal left ICA stenosis. Normal systolic velocities are noted in the proximal left external carotid artery. There is antegrade flow in the left vertebral artery. IMPRESSION: 1. Critical 80-99 percent proximal left ICA stenosis. If further evaluation is indicated, an MRA with gadolinium evaluation, CTA, or conventional arteriogram can be considered. 2. 20-39 percent proximal right ICA stenosis. 3. Antegrade flow in both vertebral arteries
[2017-12-01] MEDS ORDERED: cefTRIAXone 1 gm 1 GM/100 ML BAG IVPB SCH (10:00)
--- NOTE | 2017-12-01 14:54 | PN ---
DATE: 12/01/2017 SUBJECTIVE: The patient is 72 years old, seen and examined. No complaint of chest pain. No nausea or vomiting. No diarrhea. PHYSICAL EXAMINATION: VITAL SIGNS: He is afebrile. Pulse 88, respirations 20 and blood pressure 139/69. LUNGS: Bilateral fair airflow. No rhonchi or crackle. HEART: S1 and S2 audible. ABDOMEN: Soft, nontender. No rebound, no guarding. NEUROLOGICAL: He is awake, alert, oriented, communicative. EXTREMITIES: Moves all extremities. He has bilateral +1 leg edema with erythema. LABORATORY DATA: WBC is 6.1, hemoglobin 10.8, hematocrit 33.7 and platelets 204. Chemistry: Sodium 138, potassium 4, chloride 103, CO2 of 25, BUN 45, creatinine 2, blood sugar 296. His echocardiogram is pending. CT scan of the head is unremarkable. ASSESSMENT: 1. Near syncope. 2. Coronary artery disease status post open heart surgery. 3. Bilateral leg cellulitis. 4. Acute on chronic renal insufficiency. PLAN: We will continue the patient on current antibiotics. He is on Rocephin. I will order for carotid Doppler. We will follow up his CMP in a.m. Dot Carney MD
--- NOTE | 2017-12-01 23:34 | CON ---
DATE: 12/01/2017 CARDIOLOGY CONSULTATION HISTORY OF PRESENT ILLNESS: The patient is a 72-year-old male who presents with dizziness. PAST MEDICAL HISTORY: Notable for diabetes mellitus, hypercholesterolemia as well as noncompliance. He has chronic atrial flutter, in addition, the patient is status post coronary bypass surgery in 2013. His cardiac risk factors include diabetes mellitus, hypertension, and hypercholesterolemia. SOCIAL HISTORY: The patient is a former smoker. REVIEW OF SYSTEMS: A 14-point review of systems is reviewed in detail. No angina, no shortness of breath. Positive chronic edema. Positive erythema in the lower extremities. Positive dizziness. No syncope. PHYSICAL EXAMINATION: VITAL SIGNS: Blood pressure is 139/69, heart rate is atrial flutter in the 80s. GENERAL: The patient is obese. NECK: Negative JVD. LUNGS: No rales noted. HEART: Reveals S1, S2. EXTREMITIES: Chronic edema with erythema. LABORATORY DATA: Includes EKG that shows atrial flutter with nonspecific ST-T changes. BUN and creatinine are 45/2, glucose 192, hemoglobin is 10.8. IMPRESSION: 1. History of coronary artery bypass surgery. 2. Coronary artery disease. 3. Diabetes mellitus. 4. Pedal edema. 5. Cellulitis of the lower extremities. 6. Chronic atrial flutter. 7. Pulmonary hypertension documented on echocardiogram. 8. Anemia. 9. Peripheral vascular disease with significant carotid artery disease. Given these findings, the patient will need an MR of the of the carotid arteries. In addition, we will need to review the echocardiogram in detail. The patient is currently on IV antibiotics for cellulitis. I have discussed with the patient about his multiple organ issues, all stemming from his noncompliance with treating his diabetes mellitus. Currently, there is no evidence for acute coronary syndrome. Rahul Edmonds MD
[2017-12-02 07:45] LABS: ALB/GLOB RATIO 1.4 (1.1-1.8); ALBUMIN 4.1 g/dL (3.0-4.8); CALCIUM 9.5 mg/dL (8.4-10.5)
--- NOTE | 2017-12-02 08:40 | PN ---
DATE: 12/02/2017 CARDIOLOGY FOLLOWUP SUBJECTIVE: The patient is feeling well without symptoms. PHYSICAL EXAMINATION: VITAL SIGNS: Blood pressure is 140/75, the heart rate is in the 70s. NECK: Negative JVD. LUNGS: Without rales. HEART: Reveals S1, S2. EXTREMITIES: Without edema. LABORATORY DATA: Hemoglobin is 10.8. Chemistries: BUN and creatinine are 36 and 1.8, glucose is 252. IMPRESSION: 1. Diabetes mellitus. 2. Renal insufficiency. 3. History of coronary artery bypass surgery. 4. History of carotid disease. 5. Cellulitis of the lower extremities. PLAN: Given these findings, the patient will need imaging of the carotid arteries. We will continue antibiotics for his cellulitis. From a cardiac perspective, we will arrange for an outpatient stress test a week from today once the cellulitis is resolved. Rahul Edmonds MD
[2017-12-02] MEDS: Insulin Lispro (HUMAlog) HIGH Coverage SC SCH ×3 (08:41→17:35)
[2017-12-02] MEDS: Metoprolol Succinate 25 mg XL Tab PO SCH ×2 (09:52→17:35)
[2017-12-02] MEDS ORDERED: Cefpodoxime (Vantin) 200 mg Tab PO SCH (10:00)
[2017-12-02 12:23] VITALS: RESP 18
[2017-12-02] MEDS ORDERED: Gadodiamide 287 MG/ML VIAL (20ML) IV ONE (15:56)
[2017-12-02 17:38] VITALS: BP 145/81; PULSE 80
--- NOTE | 2017-12-02 17:43 | MRI ---
Date of service: 12/02/2017 PROCEDURE: MR Angiography of the neck with and without contrast HISTORY: critical left ICA stenosis. ? stent. Incl Arch COMPARISON: Carotid duplex Doppler examination from 12/01/2017 and 10/06/2015. TECHNIQUE: Contrast enhanced and 3D [id number] angiography of the neck was performed. Rotating 3D maximum intensity projection images of the cervical carotid and vertebral arteries were generated. 20 cc Omniscan was injected intravenously. FINDINGS: RIGHT CAROTID ARTERIES: Common Carotid Artery: Normal flow related enhancement. There is mild peripheral irregularity related to atherosclerotic disease with less than 50%stenosis. Carotid Bifurcation: Normal. Internal Carotid Artery:Normal. External Carotid Artery (proximal branches): Normal. LEFT CAROTID ARTERIES: Common Carotid Artery: Normal. Carotid Bifurcation: Normal. Internal Carotid Artery:There is short segment (5 mm) severe critical greater than 90% stenosis in the proximal internal carotid artery approximately 2 cm distal to its origin. External Carotid Artery (proximal branches): Normal. VERTEBRAL ARTERIES: Right Vertebral Artery: Normal. Hypoplastic, an anatomic variant. Left Vertebral Artery: Normal. OTHER FINDINGS: None. IMPRESSION: 1. Short segment severe critical greater than 90%stenosis in the proximal left internal carotid artery approximately 2 cm distal to its origin. 2. No evidence of hemodynamically significant stenosis in the right internal carotid artery. 3. Patent bilateral vertebral arteries with antegrade flow. The right vertebral artery is hypoplastic, an anatomic variant.
[2017-12-02 18:01] VITALS: TEMP 97.8
--- NOTE | 2017-12-02 18:45 | CARD ---
APPROVED REPORT Date of service: 12/01/2017 EXAM: Two-dimensional and M-mode echocardiogram with Doppler and color Doppler. INDICATION Dizziness and Vertigo 2D DIMENSIONS Left Atrium (2D)5.2 (1.6-4.0cm)IVSd1.4 (0.7-1.1cm) LVDd5.4 (3.9-5.9cm)PWd1.3 (0.7-1.1cm) LVDs4.0 (2.5-4.0cm)FS (%) 25.9 % LVEF (%)50.5 (>50%) M-Mode DIMENSIONS Aortic Root3.40 (2.2-3.7cm)Aortic Cusp Exc.1.70 (1.5-2.0cm) Aortic Valve AoV Peak Uprbbple845.0cm/Ilya Peak GR.7mmHg Mitral Valve MV E Iaqrqjdc813.0cm/sMV E Peak Gr.21mmHgMV A Jirxhazy413.0cm/s MV E Mean Gr.8mmHgMV SUG79cwY/A ratio1.8 MVA (PHT)2.39cm2 TDI Lateral E' Peak V6.73cm/sMedial E' Peak V4.68cm/sE/Lateral E'28.8 E/Medial E'41.5 Pulmonary Valve PV Peak Uuimiomh07.5cm/sPV Peak Grad.2mmHg Tricuspid Valve TR Peak Ejlnzhnr553lc/sRAP WGRKEVIY54kzKlCY Peak Gr.59mmHg PZYO74wzHp LEFT VENTRICLE The left ventricle is normal size. There is mild concentric left ventricular hypertrophy. The systolic function is mildly impaired.EF-45% There is global hypokinesis of the left ventricle. Transmitral Doppler flow pattern is Grade II-pseudonormal filling dynamics. No left ventricle thrombus noted on this study. There is no ventricular septal defect visualized. There is no left ventricular aneurysm. There is no mass noted in the left ventricle. RIGHT VENTRICLE The right ventricle is mildly dilated. There is normal right ventricular wall thickness. Systolic function is mildly reduced. ATRIA The left atrium is mildly dilated. The right atrium is mildly dilated. The interatrial septum is intact with no evidence for an atrial septal defect. AORTIC VALVE The aortic valve is thickened but opens well. No aortic regurgitation is present. There is no aortic valvular stenosis. There is no aortic valvular vegetation. MITRAL VALVE Mitral regurgitation is mild. S/p MV repair with EC ring TRICUSPID VALVE The tricuspid valve leaflets are thickened , but open well. There is moderate tricuspid regurgitation.RVSP-69 mmof hg. There is moderate to severe pulmonary hypertension. There is no tricuspid valve stenosis. There is no tricuspid valve prolapse or vegetation. PULMONIC VALVE The pulmonic valve is not well visualized., but probably normal GREAT VESSELS The aortic root is normal in size. The ascending aorta is normal in size. The pulmonary artery is normal. The IVC is normal in size and collapses >50% with inspiration. PERICARDIAL EFFUSION There is no pleural effusion. There is a trace pericardial effusion. <Conclusion> The left ventricle is normal size. There is mild concentric left ventricular hypertrophy. The systolic function is mildly impaired.EF-45% Mitral regurgitation is mild. S/p MV repair with EC ring There is moderate tricuspid regurgitation.RVSP-69 mmof hg. There is moderate to severe pulmonary hypertension. The IVC is normal in size and collapses >50% with inspiration. There is a trace pericardial effusion.
--- NOTE | 2017-12-02 20:58 | CON ---
DATE: 12/02/2017 TIME: 3:25 p.m. CHIEF COMPLAINT/HISTORY OF PRESENT ILLNESS: This is a 72-year-old noncompliant vasculopath, who was admitted with a syncopal episode. His carotid ultrasound demonstrated a critical left ICA stenosis. He has mild right ICA disease. PAST MEDICAL HISTORY: Significant for a left carotid endarterectomy approximately 8 years ago. The patient has also had a CABG approximately 4 years ago. He has hypertension, diabetes and dyslipidemia. He is noncompliant with his medications and physician visits. He has a distant history of prostate cancer. Upon questioning, the patient describes some events involving weakness in the left arm. His CT scan of the head demonstrates left frontal encephalomalacia. No acute ischemic events or bleed were noted. The patient's creatinine is 1.6. He is currently on aspirin. He denies chest pain or shortness of breath. ALLERGIES: HE IS NOT ALLERGIC TO ANY MEDICATIONS. ASSESSMENT AND PLAN: I spoke with Dr. Carney. An MRA will be performed in order to confirm the critical left stenosis. Given the patient's history for previous carotid endarterectomy and his medical comorbidities, he would likely benefit from left ICA stent placement. Plavix will be added to his medications. He will be fitted with calf compression stockings for his LE stasis changes. We will need Vascular Surgery input and I will follow up with him as an outpatient after the MRA has been performed. Rahul Guerrero MD [facility]
--- NOTE | 2017-12-03 03:25 | DS ---
HISTORY OF PRESENT ILLNESS: Patient is 72 years old. Seen and examined. Doing well. Still have leg swelling, complaining of discomfort to the legs, have erythema. No shortness of breath. No chest pain. PHYSICAL EXAMINATION: VITAL SIGNS: He is afebrile, pulse 79, respiration 18, blood pressure 156/80. LUNGS: Bilateral fair airflow. No rhonchi or crackle. HEART: S1, S2, audible. ABDOMEN: Soft, obese, nontender. No rebound, no guarding. NEUROLOGIC: He is awake, alert, oriented, communicative. Ambulatory. EXTREMITIES: Bilateral legs, he has erythema with +2 leg swelling. LABORATORY DATA: WBC 6.1, hemoglobin 10.8, hematocrit 33.7, platelets 204. Chemistry: Sodium 138, potassium 4.3, chloride 103, CO2 26, BUN 36, creatinine 1.6, blood sugar of 273. His blood cultures are negative. He has carotid Doppler done that shows left carotid stenosis. Critical 80-99% proximal left ICA stenosis and right ICA is 20% to 39%. ASSESSMENT AND PLAN: 1. Left carotid stenosis. 2. Status post syncope. 3. Coronary artery disease, status post open heart surgery. 4. Hypertension. 5. Poorly controlled diabetes. 6. Morbid obesity. 7. Acute on chronic renal failure. PLAN: Currently patient is on Vantin 200 twice a day. Patient is strictly advised to lose weight, monitor his blood sugar closely and take his insulin regularly. He will be evaluated by Dr. Rahul Guerrero and after that he will be discharged after his evaluation for further management of his left carotid stenosis. Dot Carney MD
== END 2017-12-02 18:56 | disposition home or self-care (01) | DRG 68 ==
LOC: ED 16:05 → ERH 20:52 → 2RNO 23:33 → OBSVTOIN 12-01 16:48 → 2RNO 12-01 20:02
PROVIDERS: ADMIT Internal Medicine; ATTEND Internal Medicine
DX: I65.22 Occlusion and stenosis of left carotid artery (principal); N17.9 Acute kidney failure, unspecified; L03.115 Cellulitis of right lower limb; L03.116 Cellulitis of left lower limb; I48.92 Unspecified atrial flutter; I25.10 Atherosclerotic heart disease of native coronary artery without angina pectoris; E11.65 Type 2 diabetes mellitus with hyperglycemia; N18.9 Chronic kidney disease, unspecified; E11.22 Type 2 diabetes mellitus with diabetic chronic kidney disease; I12.9 Hypertensive chronic kidney disease with stage 1 through stage 4 chronic kidney disease, or unspecified chronic kidney disease; E11.40 Type 2 diabetes mellitus with diabetic neuropathy, unspecified; E11.51 Type 2 diabetes mellitus with diabetic peripheral angiopathy without gangrene; I27.20 Pulmonary hypertension, unspecified; E78.5 Hyperlipidemia, unspecified; E78.00 Pure hypercholesterolemia, unspecified; D64.9 Anemia, unspecified; E66.01 Morbid (severe) obesity due to excess calories; R55 Syncope and collapse; Z95.1 Presence of aortocoronary bypass graft; Z85.46 Personal history of malignant neoplasm of prostate; Z79.4 Long term (current) use of insulin; Z87.891 Personal history of nicotine dependence; Z90.79 Acquired absence of other genital organ(s); Z79.82 Long term (current) use of aspirin; Z91.11 Patient's noncompliance with dietary regimen; Z91.14 Patient's other noncompliance with medication regimen; Z91.19 Patient's noncompliance with other medical treatment and regimen; Z95.5 Presence of coronary angioplasty implant and graft; Z68.35 Body mass index [BMI] 35.0-35.9, adult

== ENCOUNTER 2018-01-09 17:12 | Inpatient (IN) | payer MEDICARE, OTHER ==
[2018-01-09 17:12] VITALS: BMI 32.8
--- NOTE | 2018-01-09 17:21 | ED PDOC ---
Arrival/HPI <Mark Spence - Last Filed: 01/09/18 20:36> - General Historian: Patient - History of Present Illness Narrative History of Present Illness (Text): 01/09/18 17:20 72 yo M with PMHx of HTN, HLD, DM, diabetic neuropathy, hx bladder cancer presenting to ED for recurrent b/l LE cellulitis refractory to PO antibiotic treatment. Per patient, he has had the cellulitis on and off for ~1 year now, has taken various PO antibiotics that help for brief periods of time, but then recurs. Current episode began yesterday. Patient complains of burning s ensation to b/l LE. Denies fevers/chills, headaches, chest pain, palpitations, sob, cough, abdominal pain, n/v/d/c PMHx: HTN, HLD, DM, diabetic neuropathy, hx bladder cancer PSHx: CABG Allergies: NKDA Home Medications: as per chart Social Hx: denies alcohol, tobacco, illicit drug use FHx: unknown PMD: Dr. Carney Time/Duration: 24 hours Symptom Onset: Sudden Symptom Course: Unchanged Quality: Burning Activities at Onset: Light <Krishna Briones - Last Filed: 01/10/18 07:19> - General Time Seen by Provider: 01/09/18 17:14 Past Medical History - Provider Review Nursing Documentation Reviewed: Yes - Infectious Disease Hx of Infectious Diseases: None - Tetanus Immunization Tetanus Immunization: Unknown - Cardiac Hx Pacemaker: No - Pulmonary Hx Respiratory Disorders: No Hx Asthma: No Hx Bronchitis: No Hx Chronic Obstructive Pulmonary Disease (COPD): No Hx Emphysema: No Hx Pneumonia: No Hx Respiratory Aspiration: No Hx Respiratory Tract Infection: No Hx Sleep Apnea: No - Neurological Hx Paralysis: No - HEENT Hx HEENT Disorder: No Hx Blind: No Hx Cataracts: No Hx Deafness: No Hx Difficulty Chewing: No Hx Epistaxis: No Hx Glaucoma: No Hx Macular Degeneration: No - Renal Hx Renal Disorder: No Hx Dialysis: No Hx Kidney Stones: No Hx Neurogenic Bladder: No Hx Pyelonephritis: No Hx Renal Cancer: No Hx Renal Failure: No - Endocrine/Metabolic Hx Endocrine Disorders: Yes Hx Diabetes Mellitus Type 1: Yes Hx Diabetes Mellitus Type 2: Yes Hx Hyperthyroidism: No Hx Hypothyroidism: No Hx Systemic Lupus Erythematosus: No - Hematological/Oncological Hx Blood Transfusions: No Hx Blood Transfusion Reaction: No - Integumentary Hx Dermatological Disorder: No Hx Basal Cell Carcinoma: No Hx Eczema: No Hx Melanoma: No Hx Psoriasis: No Hx Squamous Cell Carcinoma: No - Musculoskeletal/Rheumatological Hx Musculoskeletal Disorders: No - Gastrointestinal Hx Gastrointestinal Disorders: No Hx Colostomy: No Hx Crohn's Disease: No Hx Diverticulitis: No Hx Gall Bladder Disease: No Hx Gastroesophageal Reflux: No Hx Gastrointestinal Ulcer: No Hx Ileostomy: No Hx Liver Failure: No Hx Pancreatitis: No HX Swallowing Problems: No - Genitourinary/Gynecological Hx Genitourinary Disorders: No Hx Hematuria: No Hx Incontinence: No Hx Prostate Problems: No Hx Sexually Transmitted Diseases: No Hx Urinary Tract Infection: No - Psychiatric Hx Emotional Abuse: No Hx Physical Abuse: No Hx Substance Use: No - Past Surgical History Past Surgical History: Non-Contributing - Surgical History Hx Amputation: No Hx Appendectomy: No Hx Cardiac Catheterization: Yes Hx Cholecystectomy: No Hx Gastric Bypass Surgery: No Hx Hysterectomy: No Hx Inguinal Hernia Repair: No Hx Joint Replacement: No Hx Kidney Transplant: No Hx Liver Transplant: No Hx Mastectomy: No Hx Musculoskeletal Surgery: No Hx Open Heart Surgery: No Hx Orthopedic Surgery: No Hx Splenectomy: No Hx Valve Replacement: No - Anesthesia Hx Anesthesia Reactions: No Hx Malignant Hyperthermia: No - Suicidal Assessment Feels Threatened In Home Enviroment: No <Krishna Briones - Last Filed: 01/10/18 07:19> Family/Social History - Physician Review Nursing Documentation Reviewed: Yes Family/Social History: Unknown Family HX Smoking Status: Former Smoker Hx Alcohol Use: No Hx Substance Use: No Hx Substance Use Treatment: No <Krishna Briones - Last Filed: 01/10/18 07:19> Allergies/Home Meds <Mark Spence - Last Filed: 01/09/18 20:36> <Krishna Briones - Last Filed: 01/10/18 07:19> Allergies/Adverse Reactions: Allergies No Known Allergies Allergy (Verified 01/09/18 17:24) Home Medications: Home Meds Medication Instructions Recorded Confirmed Aspirin [Aspirin Chewable] 81 mg PO DAILY 12/02/17 01/09/18 Atorvastatin Calcium 40 mg PO HS 12/02/17 01/09/18 Clopidogrel [Plavix] 75 mg PO DAILY 12/02/17 01/09/18 Fenofibrate [Tricor] 145 mg PO DAILY 12/02/17 01/09/18 Finasteride [Proscar] 5 mg PO DAILY 12/02/17 01/09/18 Pantoprazole [Protonix EC Tab] 40 mg PO DAILY 12/02/17 01/09/18 amLODIPine [Norvasc] 10 mg PO DAILY 12/02/17 01/09/18 Furosemide [Lasix] 40 mg PO DAILY PRN 01/07/18 01/09/18 Insulin Detemir [Levemir] 80 unit SC HS 01/07/18 01/09/18 Insulin Lispro [Humalog Kwikpen 60 unit SQ ACTID 01/07/18 01/09/18 U-100] Losartan/Hydrochlorothiazide 1 tab PO DAILY 01/07/18 01/09/18 [Losartan-Hctz 100-12.5 mg Tab] Metoprolol Succinate [Toprol Xl] 100 mg PO DAILY 01/07/18 01/09/18 Potassium Chloride [Klor-Con 10] 10 meq PO DAILY 01/07/18 01/09/18 Review of Systems - Review of Systems Constitutional: Normal Eyes: Normal ENT: Normal Respiratory: Normal Cardiovascular: Normal. absent: Chest Pain, Palpitations Gastrointestinal: Normal. absent: Abdominal Pain, Diarrhea, Nausea, Vomiting Genitourinary Male: Normal Skin: Ulcer (~2cm ulcer to R anterior mitchell), Cellulitis (b/ LE) Neurological: Normal Endocrine: Normal Hemo/Lymphatic: Normal Psychiatric: Normal <Krishna Briones - Last Filed: 01/10/18 07:19> Physical Exam Vital Signs Temp Pulse Resp BP Pulse Ox 01/09/18 19:28 99.5 F 76 16 153/70 H 18 L 01/09/18 17:20 97.8 F 96 H 18 143/71 93 L <Mark Spence - Last Filed: 01/09/18 20:36> Vital Signs Reviewed: Yes Temperature: Afebrile Blood Pressure: Normal Pulse: Tachycardic Respiratory Rate: Normal Appearance: Positive for: Well-Appearing, Non-Toxic, Comfortable Pain Distress: Mild Mental Status: Positive for: Alert and Oriented X 3 - Systems Exam Head: Present: Atraumatic, Normocephalic Pupils: Present: PERRL Extroacular Muscles: Present: EOMI Conjunctiva: Present: Normal Mouth: Present: Moist Mucous Membranes Neck: Present: Normal Range of Motion Respiratory/Chest: Present: Clear to Auscultation, Good Air Exchange. No: Respiratory Distress, Accessory Muscle Use, Wheezes, Rales, Rhonchi Cardiovascular: Present: Regular Rate and Rhythm, Normal S1, S2 Abdomen: Present: Normal Bowel Sounds. No: Tenderness, Distention, Peritoneal Signs, Rebound, Guarding, Mass/Organomegaly Back: Present: Normal Inspection Upper Extremity: Present: Normal Inspection, Normal ROM, NORMAL PULSES, Capillary Refill < 2s. No: Cyanosis, Edema, Tenderness, Swelling, Erythema Lower Extremity: Present: Normal Inspection, CALF TENDERNESS (b/l ), NORMAL PULSES, Normal ROM, Swelling (L>R), Erythema, Capillary Refill < 2 s Neurological: Present: GCS=15, Speech Normal Skin: Present: Warm, Dry, Rashes (b/l LE cellulitis), Erythematous (b/l LE) Psychiatric: Present: Alert, Oriented x 3, Normal Insight, Normal Concentration <Krishna Briones - Last Filed: 01/10/18 07:19> Medical Decision Making ED Course and Treatment: In agreement with resident note, which includes further HPI details. Patient was seen and evaluated with resident, came up with plan and treatment together. - Lab Interpretations Lab Results: 01/09/18 18:40 01/09/18 18:40 Lab Results 01/09/18 20:04: Urine Color Light yellow, Urine Appearance Clear, Urine pH 6.0, Ur Specific [place] 1.025, Urine Protein 100 H, Urine Glucose (UA) >=1000, Urine Ketones Negative, Urine Blood Small H, Urine Nitrate Negative, Urine Bilirubin Negative, Urine Urobilinogen 1.0 H, Ur Leukocyte Esterase Negative, Urine RBC 0 - 2, Urine WBC Negative, Ur Epithelial Cells None, Urine Bacteria Neg 01/09/18 18:40: Sodium 138, Potassium 4.2, Chloride 104, Carbon Dioxide 24, Anion Gap 15, BUN 36 H, Creatinine 1.3, Est GFR ( Amer) > 60, Est GFR (Non-Af Amer) 54, Random Glucose 356 H* D, Calcium 9.7, Total Bilirubin 0.6, AST 40, ALT 35, Alkaline Phosphatase 49, Total Protein 7.0, Albumin 4.0, Globulin 3.0, Albumin/Globulin Ratio 1.3 01/09/18 18:40: WBC 5.1, RBC 3.92, Hgb 11.0 L, Hct 34.1 L, MCV 87.0, MCH 28.1, MCHC 32.3, RDW 14.2, Plt Count 195, MPV 10.4, Gran % 68.8 H, Lymph % (Auto) 18.5 L, [place] % (Auto) 11.1 H, Eos % (Auto) 1.2 L, Baso % (Auto) 0.4, Gran # 3.54, Lymph # (Auto) 1.0 L, [place] # (Auto) 0.6, Eos # (Auto) 0.1, Baso # (Auto) 0.02, ESR 45 H - RAD Interpretation Radiology Orders: 01/09/18 18:01 DUPLEX LOWER EXTRM VEIN BILAT [US] Stat - Medication Orders Current Medication Orders: Amlodipine Besylate (Norvasc) 10 mg PO DAILY [facility] Aspirin (Aspirin Chewable) 81 mg PO DAILY [facility] Atorvastatin Calcium (Lipitor) 40 mg PO HS [facility] Fenofibrate (Tricor) 145 mg PO DAILY [facility] Finasteride (Proscar) 5 mg PO DAILY [facility] Furosemide (Lasix) 40 mg IVP DAILY [facility] Hydrochlorothiazide (Microzide) 12.5 mg PO DAILY [facility] Ceftriaxone Sodium (Rocephin 1 Gram Ivpb) 1 gm in 100 mls @ 100 mls/hr IVPB DAILY [facility]UDIA; Protocol Vancomycin HCl (Vancomycin 1gm) 1 gm in 250 mls @ 167 mls/hr IVPB 0600,1800 CLAUDIA; Protocol Sodium Chloride (Sodium Chloride 0.9%) 1,000 mls @ 999 mls/hr IV .Q1H1M STA Stop: 01/09/18 21:08 Last Admin: 01/09/18 20:20 Dose: 999 mls/hr eMAR Start Stop Document 01/09/18 20:20 RG (Rec: 01/09/18 20:20 RG [id number]) Intravenous Solution Start Date 01/09/18 Start Time 20:20 Insulin Detemir (Levemir) 80 unit SC HS [facility] Losartan Potassium (Cozaar) 1 mg PO DAILY [facility] Metolazone (Zaroxolyn) 5 mg PO DAILY [facility] Metoprolol Succinate (Toprol Xl) 100 mg PO DAILY [facility]UDIA Non-Formulary Medication (Insulin Lispro [Humalog Kwikpen U-100]) 60 unit SQ ACTID [facility] Pantoprazole Sodium (Protonix Ec Tab) 40 mg PO DAILY [facility]UDIA Potassium Chloride (Klor-Con 10) 10 meq PO DAILY CLAUDIA Discontinued Medications Vancomycin HCl (Vancomycin 1gm) 1 gm in 250 mls @ 167 mls/hr IVPB STAT STA; Protocol Stop: 01/09/18 19:20 Last Admin: 01/09/18 18:13 Dose: 167 mls/hr eMAR Start Stop Document 01/09/18 18:13 EQ (Rec: 01/09/18 18:13 EQ [facility] Intravenous Solution Start Date 01/09/18 Start Time 18:13 <Mark Spence - Last Filed: 01/09/18 20:36> ED Course and Treatment: 01/09/18 18:31 Impression: 72 yo M presenting to ED for recurrent b/l LE cellulitis refractory to PO abx Plan: --CBC, CMP --ESR --UA --BCx, UCx --dopplers LE --reassess and disposition <Krishna Briones - Last Filed: 01/10/18 07:19> Disposition/Present on Arrival <Mark Spence - Last Filed: 01/09/18 20:36> - Present on Arrival Any Indicators Present on Arrival: Yes History of DVT/PE: No History of Uncontrolled Diabetes: Yes Urinary Catheter: No History Surgical Site Infection Following: None - Disposition Have Diagnosis and Disposition been Completed?: Yes Disposition Time: 07:19 <Krishna Briones - Last Filed: 01/10/18 07:19> - Disposition Diagnosis: Cellulitis Disposition: HOSPITALIZED Condition: STABLE
[2018-01-09] MEDS ORDERED: Vancomycin 1gm in NS 250ml 1 GM/250 ML BAG IVPB STA (17:51)
[2018-01-09 19:25] LABS: BASO # 0.02 K/mm3 (0.0-2.0); BASO % 0.4 % (0.0-3.0); EOS # 0.1 (0.0-0.7); EOS % 1.2 % (1.5-5.0); GRAN # 3.54 (1.4-6.5); GRAN % 68.8 % (50.0-68.0); LYMPH % 18.5 % (22.0-35.0); MEAN CORPUSCULAR HEMOGLOBIN 28.1 pg (25.0-35.0); MEAN CORPUSCULAR HGB CONC 32.3 g/dl (31.0-37.0); MEAN PLATELET VOLUME 10.4 fl (7.0-11.0); MONO # 0.6 (0.1-0.6); MONO % 11.1 % (1.0-6.0); RBC 3.92 10^6/uL (3.5-6.1); RED CELL DISTRIBUTION WIDTH 14.2 % (11.5-14.5); WHITE BLOOD COUNT 5.1 10^3/ul (4.5-11.0)
[2018-01-09 19:45] LABS: ALB/GLOB RATIO 1.3 (1.1-1.8); ALT/SGPT 35 U/L (7-56); AST/SGOT 40 U/L (17-59); BLOOD UREA NITROGEN 36 mg/dL (7-21); CALCIUM 9.7 mg/dL (8.4-10.5); GFR NON-AFRICAN AMERICAN 54
[2018-01-09] MEDS ORDERED: Sodium Chloride 0.9% 1,000 ML IV STA (20:08)
[2018-01-09 20:13] LABS: URINE BILIRUBIN NEGATIVE (NEGATIVE); URINE BLOOD SMALL (NEGATIVE); URINE GLUCOSE (UA) >=1000 mg/dL (NEGATIVE); URINE LEUKOCYTE ESTERASE NEGATIVE Leu/uL (NEGATIVE); URINE PROTEIN 100 mg/dL (<30 mg/dL)
[2018-01-09 20:14] LABS: URINE APPEARANCE CLEAR (CLEAR); URINE COLOR LIGHT YELLOW (YELLOW)
[2018-01-09 20:21] LABS: URINE BACTERIA NEG (NEG); URINE RBC 0 - 2 /hpf (0-2); URINE WBC NEGATIVE /hpf (0-6)
[2018-01-10] MEDS: Insulin Detemir 100 units/ml Vial (Levemir) SC SCH ×2 (00:52→21:18)
[2018-01-10] MEDS: Vancomycin 1gm in NS 250ml 1 GM/250 ML BAG IVPB SCH ×2 (05:58→17:00)
[2018-01-10 06:31] LABS: BASO # 0.02 K/mm3 (0.0-2.0); BASO % 0.4 % (0.0-3.0); EOS # 0.1 (0.0-0.7); GRAN # 3.47 (1.4-6.5); GRAN % 64.4 % (50.0-68.0); HEMOGLOBIN 11.6 g/dL (14.0-18.0); LYMPH # 1.3 (1.2-3.4); LYMPH % 24.5 % (22.0-35.0); MEAN CELL VOLUME 86.3 fl (80.0-105.0); MEAN CORPUSCULAR HGB CONC 31.3 g/dl (31.0-37.0); MEAN PLATELET VOLUME 10.2 fl (7.0-11.0); MONO # 0.5 (0.1-0.6); MONO % 8.7 % (1.0-6.0); RBC 4.3 10^6/uL (3.5-6.1); RED CELL DISTRIBUTION WIDTH 14.2 % (11.5-14.5); WHITE BLOOD COUNT 5.4 10^3/ul (4.5-11.0)
[2018-01-10 06:37] LABS: ALB/GLOB RATIO 1.3 (1.1-1.8); ALBUMIN 4.2 g/dL (3.0-4.8); ALT/SGPT 36 U/L (7-56); AST/SGOT 46 U/L (17-59); BLOOD UREA NITROGEN 28 mg/dL (7-21); GFR NON-AFRICAN AMERICAN 60
--- NOTE | 2018-01-10 07:37 | HP ---
DATE OF SERVICE: 01/09/2018 HISTORY OF PRESENT ILLNESS: The patient is 72 years old known to me from office practice, has been having recurrent bilateral leg swelling. He was treated twice in the office in the last two to three months. He stated his legs start to swell up again and he started develop blister, so he came to emergency room because last time I treated him as outpatient, but he felt better when his got his IV Lasix and IV antibiotics, for that reason he came to ER. He denies any fever or chills. No history of nausea or vomiting, no diarrhea. PAST MEDICAL HISTORY: He has significant past medical history of: 1. Coronary artery disease, status post open heart surgery. 2. Poor-controlled insulin-dependent diabetes. 3. History of carotid stenosis; for that, the patient is scheduled to have carotid angioplasty done on left internal carotid. 4. Hyperlipidemia. 5. Morbid obesity. 6. Mild renal insufficiency. ALLERGIES: NOT ALLERGIC TO ANY MEDICATIONS. MEDICATIONS AT HOME: He is on K-Dur 10 mEq daily, Protonix 40 mg daily, metoprolol 100 mg daily, losartan. He is on lisinopril, Levemir. He is getting Proscar, fenofibrate, Plavix, atorvastatin, aspirin 81 daily, amlodipine 10 mg daily. SOCIAL HISTORY: He is , lives with his . He used to be a heavy smoker, quit 10 years ago. REVIEW OF SYSTEMS: Bilateral leg swelling and erythema. PHYSICAL EXAMINATION: GENERAL: He is awake, alert, oriented, not in any distress. VITAL SIGNS: He is afebrile, pulse 96, respirations 18, blood pressure 143/71. LUNGS: Bilateral fair airflow. No rhonchi or crackle. HEART: S1 and S2 audible. ABDOMEN: Obese, soft, nontender. No rebound, no guarding. NEUROLOGIC: The patient is awake, alert and oriented, communicative. ASSESSMENT: 1. Bilateral leg cellulitis. 2. Bilateral leg edema. 3. Hypertension. 4. Coronary artery disease, status post open heart surgery. 5. Insulin-dependent diabetes. 6. Left carotid stenosis. PLAN: The patient will be admitted. We will give him IV diuretic, monitor his electrolyte, start him on IV antibiotics and I will reach out to Dr. Rahul Guerrero if carotid angioplasty can be done during this admission or that should be postponed to be done later on next week. Dot Carney MD [facility] # [phone]
[2018-01-10] MEDS: Potassium Chloride 10 mEq ER Tab PO SCH (10:00)
[2018-01-10] MEDS: INSULIN LISPRO 60 UNIT SQ SCH ×3 (10:51→16:22)
[2018-01-10] MEDS: Pantoprazole 40 mg EC Tab PO SCH (11:02)
[2018-01-10] MEDS: Metoprolol Succinate 100 mg XL Tab PO SCH (11:07)
[2018-01-10] MEDS: metOLazone 5 MG TAB PO SCH (11:07)
[2018-01-10] MEDS: cefTRIAXone 1 gm 1 GM/100 ML BAG IVPB SCH (11:09)
--- NOTE | 2018-01-10 15:17 | PN ---
DATE: 01/10/2018 HISTORY OF PRESENT ILLNESS: Mr. Levine is a 72-year-old male admitted to the hospital with recurrent bilateral lower extremity cellulitis. He has been treated for past 3 months for the same thing. He developed blisters in lower extremity. He has been on aggressive diuresis and antibiotics. No fever, no chills, no rigors. PAST MEDICAL HISTORY: Coronary artery disease, diabetes mellitus type 2, uncontrolled carotid stenosis status post angioplasty, hyperlipidemia, morbid obesity, history of renal insufficiency. ALLERGIES: NO KNOWN DRUG ALLERGIES. HOME MEDICATIONS: K-Dur, Protonix, metoprolol 100 mg daily, losartan, lisinopril, Levemir, Proscar, Plavix, aspirin, amlodipine. SOCIAL HISTORY: , lives with the . PERSONAL HISTORY: Heavy smoker. FAMILY HISTORY: Noncontributory. REVIEW OF SYSTEMS: As per HPI. Rest of 12-point review of systems reviewed negative. PHYSICAL EXAMINATION: GENERAL: Awake, alert and oriented x3. No focal sensorimotor deficits. VITAL SIGNS: Afebrile. Temperature 98.6, heart rate is 80 per minute, respiratory rate 18 per minute, blood pressure 130/70. HEENT: Pallor positive. NECK: No lymphadenopathy. CHEST: Air entry present and equal bilateral. No added sounds. CARDIOVASCULAR: S1, S2 normal. No murmur. No gallop. ABDOMEN: Soft, nontender. No hepatosplenomegaly. EXTREMITIES: No edema. NEUROLOGIC: Awake, alert and oriented x3. No focal sensorimotor deficits. LABORATORY DATA: Reviewed. ASSESSMENT: Bilateral lower extremity cellulitis, hypertension, coronary artery disease, carotid artery stenosis, anemia. PLAN: He is currently on IV antibiotic, IV diuresis. Currently on ceftriaxone 1 g daily. Insulin 80 mg Levemir at bedtime, Cozaar 1 mg, Cozaar, metoprolol 100 mg p.o. daily, Protonix 40 mg daily, K-Dur 10 mEq daily, encouraged ambulation. Continue aspirin and Norvasc. Viv Moya MD
--- NOTE | 2018-01-10 16:51 | US ---
HISTORY: Leg pain and swelling. Evaluate for DVT PHYSICIAN(S): Rahul Guerrero MD. TECHNIQUE: Duplex sonography and color-flow Doppler with graded compression were used to evaluate the deep venous systems of both lower extremities. FINDINGS: The visualized deep venous systems of both lower extremities are sonographically normal and compressible. Normal wave forms and augmentation are seen. There is no sonographic evidence for deep venous thrombosis in the visualized segments of both lower extremities. IMPRESSION: No sonographic evidence for deep venous thrombosis in the visualized segments of both lower extremities.
[2018-01-10] MEDS ORDERED: Insulin Regular 1 UNITS/0.01 ML ML SC ONE (21:33)
[2018-01-10] MEDS: Insulin Reg-HIGH-Coverage SC SCH (22:00)
[2018-01-11] MEDS: Vancomycin 1gm in NS 250ml 1 GM/250 ML BAG IVPB SCH ×2 (05:42→17:21)
[2018-01-11] MEDS: Insulin Reg-HIGH-Coverage SC SCH ×4 (07:31→21:59)
[2018-01-11] MEDS: cefTRIAXone 1 gm 1 GM/100 ML BAG IVPB SCH (09:24)
[2018-01-11] MEDS: metOLazone 5 MG TAB PO SCH (09:26)
[2018-01-11] MEDS: Pantoprazole 40 mg EC Tab PO SCH (09:29)
[2018-01-11] MEDS: Potassium Chloride 10 mEq ER Tab PO SCH (09:29)
[2018-01-11] MEDS: Metoprolol Succinate 100 mg XL Tab PO SCH (09:29)
[2018-01-11] MEDS: Mupirocin 2% Ointment 15 GM TUBE TOP SCH ×2 (11:23→17:21)
[2018-01-11] MEDS ORDERED: metOLazone 5 MG TAB PO SCH (12:45)
[2018-01-11] MEDS: Sodium Chloride 0.45% 1,000 ML IV SCH (14:53)
--- NOTE | 2018-01-11 16:13 | CP.PCM.CON ---
History of Present Illness - History of Present Illness History of Present Illness: Podiatry consult note for Dr. Metcalf, 72 yo M with PMHx of HTN, HLD, DM, diabetic neuropathy, hx bladder cancer seen at bedside for recurrent b/l LE cellulitis with blister on the midleg. Per patient, he has had the cellulitis on and off for ~1 year now, has taken various PO antibiotics that help for brief periods of time, but then recurs. Patient complains of burning sensation to b/l LE. Denies fevers/chills, headaches, chest pain, palpitations, sob, cough, abdominal pain, n/v/d/c PMHx: HTN, HLD, DM, diabetic neuropathy, hx bladder cancer PSHx: CABG Allergies: NKDA Home Medications: as per chart Social Hx: denies alcohol, tobacco, illicit drug use FHx: unknown PMD: Dr. Carney Past Patient History - Infectious Disease Hx of Infectious Diseases: None - Tetanus Immunizations Tetanus Immunization: Unknown - Past Social History Smoking Status: Former Smoker - CARDIAC Hx Pacemaker: No - PULMONARY Hx Respiratory Disorders: No Hx Asthma: No Hx Bronchitis: No Hx Chronic Obstructive Pulmonary Disease (COPD): No Hx Emphysema: No Hx Pneumonia: No Hx Respiratory Aspiration: No Hx Respiratory Tract Infection: No Hx Sleep Apnea: No - NEUROLOGICAL Hx Paralysis: No - HEENT Hx HEENT Problems: No Hx Blind: No Hx Cataracts: No Hx Deafness: No Hx Difficulty Chewing: No Hx Epistaxis: No Hx Glaucoma: No Hx Macular Degeneration: No - RENAL Hx Chronic Kidney Disease: No Hx Dialysis: No Hx Kidney Stones: No Hx Neurogenic Bladder: No Hx Pyelonephritis: No Hx Renal (Kidney) Cancer: No Hx Renal Failure: No - ENDOCRINE/METABOLIC Hx Endocrine Disorders: Yes Hx Diabetes Mellitus Type 1: Yes Hx Diabetes Mellitus Type 2: Yes Hx Hyperthyroidism: No Hx Hypothyroidism: No Hx Systemic Lupus Erythematosus: No - HEMATOLOGICAL/ONCOLOGICAL Hx Blood Transfusions: No Hx Blood Transfusion Reaction: No - INTEGUMENTARY Hx Dermatological Problems: No Hx Basil Cell: No Hx Eczema: No Hx Melanoma: No Hx Psoriasis: No Hx Squamous Cell: No - MUSCULOSKELETAL/RHEUMATOLOGICAL Hx Musculoskeletal Disorders: No - GASTROINTESTINAL Hx Gastrointestinal Disorders: No Hx Colostomy: No Hx Crohn's Disease: No Hx Diverticulitis: No Hx Gall Bladder Disease: No Hx Gastroesophageal Reflux: No Hx Ileostomy: No Hx Liver Failure: No Hx Pancreatitis: No HX Swallowing Problems: No - GENITOURINARY/GYNECOLOGICAL Hx Genitourinary Disorders: No Hx Hematuria: No Hx Incontinence: No Hx Prostate Problems: No Hx Sexually Transmitted Disorders: No Hx Urinary Tract Infection: No - PSYCHIATRIC Hx Emotional Abuse: No Hx Physical Abuse: No Hx Substance Use: No - SURGICAL HISTORY Hx Amputation: No Hx Appendectomy: No Hx Cardiac Catheterization: Yes Hx Cholecystectomy: No Hx Gastric Bypass Surgery: No Hx Hysterectomy: No Hx Joint Replacement: No Hx Kidney Transplant: No Hx Liver Transplant: No Hx Mastectomy: No Hx Musculoskeletal Surgery: No Hx Open Heart Surgery: No Hx Orthopedic Surgery: No Hx Splenectomy: No Hx Valve Replacement: No - ANESTHESIA Hx Anesthesia Reactions: No Hx Malignant Hyperthermia: No Meds Allergies/Adverse Reactions: Allergies Allergy/AdvReac Type Severity Reaction Status Date / Time No Known Allergies Allergy Verified 01/09/18 17:24 - Medications Medications: Current Medications Amlodipine Besylate (Norvasc) 10 mg PO DAILY [facility] Last Admin: 01/11/18 09:30 Dose: 10 mg Aspirin (Aspirin Chewable) 81 mg PO DAILY [facility] Last Admin: 01/11/18 09:29 Dose: 81 mg Atorvastatin Calcium (Lipitor) 40 mg PO HS [facility] Last Admin: 01/10/18 21:18 Dose: 40 mg Clopidogrel Bisulfate (Plavix) 75 mg PO DAILY [facility] Fenofibrate (Tricor) 145 mg PO DAILY [facility] Last Admin: 01/11/18 09:29 Dose: 145 mg Finasteride (Proscar) 5 mg PO DAILY [facility] Last Admin: 01/11/18 09:29 Dose: 5 mg Furosemide (Lasix) 40 mg IVP DAILY [facility] Last Admin: 01/11/18 09:30 Dose: 40 mg Gabapentin (Neurontin) 300 mg PO Q8 [facility]; Protocol Last Admin: 01/11/18 13:00 Dose: 300 mg Hydrochlorothiazide (Microzide) 12.5 mg PO DAILY [facility] Last Admin: 01/11/18 09:30 Dose: 12.5 mg Ceftriaxone Sodium (Rocephin 1 Gram Ivpb) 1 gm in 100 mls @ 100 mls/hr IVPB DAILY [facility]; Protocol Last Admin: 01/11/18 09:24 Dose: 100 mls/hr Vancomycin HCl (Vancomycin 1gm) 1 gm in 250 mls @ 167 mls/hr IVPB 0600,1800 [facility]; Protocol Last Admin: 01/11/18 05:42 Dose: 167 mls/hr Sodium Chloride (Sodium Chloride 0.45%) 1,000 mls @ 80 mls/hr IV .[id number] [facility] Stop: 01/13/18 12:00 Last Admin: 01/11/18 14:53 Dose: 80 mls/hr Insulin Detemir (Levemir) 80 unit SC HS [facility] Last Admin: 01/10/18 21:18 Dose: 80 units Insulin Human Lispro (Humalog) 25 units SC ACTID [facility] Insulin Human Regular (Humulin R High) 0 units SC ACHS [facility]; Protocol Last Admin: 01/11/18 11:22 Dose: 260 units Losartan Potassium (Cozaar) 50 mg PO DAILY [facility] Metolazone (Zaroxolyn) 5 mg PO DAILY [facility] Last Admin: 01/11/18 09:26 Dose: 5 mg Metoprolol Succinate (Toprol Xl) 100 mg PO DAILY [facility] Last Admin: 01/11/18 09:29 Dose: 100 mg Mupirocin (Bactroban Ointment) 1 gm TOP BID [facility] Last Admin: 01/11/18 11:23 Dose: 1 applic Pantoprazole Sodium (Protonix Ec Tab) 40 mg PO DAILY [facility] Last Admin: 01/11/18 09:29 Dose: 40 mg Potassium Chloride (Klor-Con 10) 10 meq PO DAILY [facility] Last Admin: 01/11/18 09:29 Dose: 10 meq Physical Exam - Constitutional Appears: Well, Non-toxic, No Acute Distress - Head Exam Head Exam: ATRAUMATIC, NORMOCEPHALIC - Extremities Exam Additional comments: Left lower extremity exam: Vascular: DP/PT 2/4, CFT <3 secs x5, TG warm to warm from proximal leg to distal tip of toes, minimal edema and erythema noted on the lateral aspect of the midleg Derm: Serous fluid filled blister noted on the lateral aspect of the midleg with periwound erythema, distal to the blister, full thickness ulceration is noted with 100% granular base, no malodor, no drainage noted, minimal periwound erythema and edema noted. Ortho: pain on palpation to the wound NeurO: protective sensation diminished via ipswich - Neurological Exam Neurological exam: Alert, Oriented x3 - Psychiatric Exam Psychiatric exam: Normal Affect - Skin Skin Exam: Normal Color Results - Vital Signs Recent Vital Signs: Last Vital Signs Temp 97.7 F 01/11/18 14:10 Pulse 80 01/11/18 14:10 Resp 20 01/11/18 14:10 BP 116/71 01/11/18 14:10 Pulse Ox 96 01/11/18 14:10 - Labs Result Diagrams: 01/10/18 05:00 01/10/18 05:00 Labs: Laboratory Results - last 24 hr 01/09/18 01/09/18 01/10/18 21:27 21:55 06:38 POC Glucose (mg/dL) 300 H 264 H 208 H 01/10/18 01/10/18 01/10/18 11:15 16:21 20:49 POC Glucose (mg/dL) 188 H 255 H 338 H 01/11/18 01/11/18 01/11/18 02:15 07:05 10:45 POC Glucose (mg/dL) 179 H 124 H 260 H 01/11/18 15:58 POC Glucose (mg/dL) 324 H Assessment & Plan - Assessment and Plan (Free Text) Assessment: 72 yo male seen at bedside for full thickness ulceration on the left mid leg with periwound cellulitis. Plan: Patient seen and evaluated Chart, labs and vitals reviewed; afebrile and absent leukocytosis Wound cultures taken and ordered Blister drained using a sterile suture removal kit Wound debrided using a sterile suture removal kit Patient tolerated without any complications Left lower extremity arterial ultrasound ordered Thank you for the consult Podiatry will follow the patient while in house
[2018-01-11] MEDS: Insulin Lispro 1 UNITS/0.01 ML SC SCH (16:26)
--- NOTE | 2018-01-11 18:11 | PN ---
DATE: 01/11/2018 SUBJECTIVE: The patient is a 72-year- old, seen and examined, came in because of worsening right leg wound. He denies any chest pain. No shortness of breath. PHYSICAL EXAMINATION: VITAL SIGNS: The patient is afebrile. Pulse 77, respirations 20, and blood pressure 155/78. LUNGS: Bilateral fair airflow. No rhonchi or crackle. HEART: S1 and S2 audible. ABDOMEN: Soft, nontender. No rebound, no guarding. NEUROLOGICAL: The patient is awake, alert, oriented, able to communicate, ambulatory. EXTREMITIES: Bilateral legs, there is erythema and redness. Right mitchell has popped ulcer, draining pussy stuff. LABORATORY DATA: WBC is 5.4, hemoglobin 11.6, hematocrit 37.1, and platelets of 209. Chemistry, blood sugar is 260. Urinalysis is unremarkable. Blood culture and urine cultures are negative. ASSESSMENT AND PLAN: 1. Bilateral leg cellulitis. 2. Morbid obesity. 3. Coronary artery disease, status post open-heart surgery 3 to 4 years ago. 4. Mild renal insufficiency. 5. Poorly controlled insulin-dependent diabetes. I will adjust his insulin. Awaiting Dr. Metcalf's input. Continue on IV antibiotics. We will follow up the patient in a.m. Dot Carney MD
[2018-01-11] MEDS: Insulin Detemir 100 units/ml Vial (Levemir) SC SCH (22:00)
[2018-01-12] MEDS: Vancomycin 1gm in NS 250ml 1 GM/250 ML BAG IVPB SCH ×2 (05:49→17:48)
[2018-01-12] MEDS: Metoprolol Succinate 100 mg XL Tab PO SCH (07:07)
[2018-01-12 07:13] LABS: INR 1.09; PARTIAL THROMBOPLASTIN TIME 30.6 Seconds (25.1-36.5); PROTHROMBIN TIME 12.6 SECONDS (9.4-12.5)
[2018-01-12 07:16] LABS: HEMOGLOBIN 12.5 g/dL (14.0-18.0); MEAN CELL VOLUME 85.9 fl (80.0-105.0); MEAN CORPUSCULAR HEMOGLOBIN 27.5 pg (25.0-35.0); MEAN PLATELET VOLUME 9.8 fl (7.0-11.0); RBC 4.55 10^6/uL (3.5-6.1); RED CELL DISTRIBUTION WIDTH 14.2 % (11.5-14.5); WHITE BLOOD COUNT 5.8 10^3/ul (4.5-11.0)
[2018-01-12] MEDS ORDERED: Lidocaine 2% Inj (20ml) ONE (08:11)
[2018-01-12] MEDS ORDERED: Nitroglycerin 50mg in D5W 50 MG/250 ML BOTTLE IV ONE (08:12)
[2018-01-12] MEDS ORDERED: Iodixanol 320 MG/ML 200 ML BOTTLE IV ONE (08:12)
[2018-01-12] MEDS ORDERED: Iodixanol 320 MG/ML 100 ML BOTTLE IV ONE ×2 (08:12→09:33)
[2018-01-12] MEDS ORDERED: DOPamine 400mg/250ml D5W 400 MG/250 ML BAG IV ONE ×2 (08:12→08:13)
[2018-01-12] MEDS ORDERED: Phenylephrine 10 mg/ml Inj ONE (08:16)
[2018-01-12] MEDS ORDERED: Midazolam 2 MG/2 ML VIAL ONE ×2 (08:52→09:10)
--- NOTE | 2018-01-12 10:58 | CP.PCM.PN ---
Subjective - Date & Time of Evaluation Date of Evaluation: 01/12/18 Time of Evaluation: 10:55 - Subjective Subjective: Podiatry progress note for Dr. Metcalf, 72 yo M with PMHx of HTN, HLD, DM, diabetic neuropathy, hx bladder cancer seen at bedside for recurrent b/l LE cellulitis with blister on the midleg. Patient complains of burning sensation to b/l LE. Denies fevers/chills, headaches, chest pain, palpitations, sob, cough, abdominal pain, n/v/d/c Objective - Vital Signs/Intake and Output Vital Signs (last 24 hours): Temp Pulse Resp BP Pulse Ox 97.6 F 85 20 176/78 H 96 01/12/18 06:00 01/12/18 07:07 01/12/18 06:00 01/12/18 07:07 01/12/18 06:00 Intake and Output: 01/12/18 01/12/18 06:59 18:59 Intake Total 1210 Balance 1210 - Medications Medications: Current Medications Amlodipine Besylate (Norvasc) 10 mg PO DAILY [facility] Last Admin: 01/12/18 05:50 Dose: 10 mg Aspirin (Aspirin Chewable) 81 mg PO DAILY [facility] Last Admin: 01/12/18 07:07 Dose: 81 mg Atorvastatin Calcium (Lipitor) 40 mg PO HS [facility] Last Admin: 01/11/18 21:59 Dose: 40 mg Clopidogrel Bisulfate (Plavix) 75 mg PO DAILY [facility] Last Admin: 01/12/18 07:07 Dose: 75 mg Fenofibrate (Tricor) 145 mg PO DAILY [facility] Last Admin: 01/11/18 09:29 Dose: 145 mg Finasteride (Proscar) 5 mg PO DAILY [facility] Last Admin: 01/11/18 09:29 Dose: 5 mg Furosemide (Lasix) 40 mg IVP DAILY [facility] Last Admin: 01/11/18 09:30 Dose: 40 mg Gabapentin (Neurontin) 300 mg PO Q8 [facility]; Protocol Last Admin: 01/12/18 05:49 Dose: 300 mg Hydrochlorothiazide (Microzide) 12.5 mg PO DAILY [facility] Last Admin: 01/11/18 09:30 Dose: 12.5 mg Ceftriaxone Sodium (Rocephin 1 Gram Ivpb) 1 gm in 100 mls @ 100 mls/hr IVPB DAILY [facility]; Protocol Last Admin: 01/11/18 09:24 Dose: 100 mls/hr Vancomycin HCl (Vancomycin 1gm) 1 gm in 250 mls @ 167 mls/hr IVPB 0600,1800 [facility]; Protocol Last Admin: 01/12/18 05:49 Dose: 167 mls/hr Sodium Chloride (Sodium Chloride 0.45%) 1,000 mls @ 80 mls/hr IV .[id number] [facility] Stop: 01/13/18 12:00 Last Admin: 01/11/18 14:53 Dose: 80 mls/hr Insulin Detemir (Levemir) 80 unit SC HS [facility] Last Admin: 01/11/18 22:00 Dose: 80 units Insulin Human Lispro (Humalog) 25 units SC ACTID [facility] Last Admin: 01/11/18 16:26 Dose: 25 units Insulin Human Regular (Humulin R High) 0 units SC ACHS [facility]; Protocol Last Admin: 01/11/18 21:59 Dose: Not Given Losartan Potassium (Cozaar) 50 mg PO DAILY [facility] Last Admin: 01/12/18 07:07 Dose: 50 mg Metolazone (Zaroxolyn) 5 mg PO DAILY [facility] Last Admin: 01/11/18 09:26 Dose: 5 mg Metoprolol Succinate (Toprol Xl) 100 mg PO DAILY [facility] Last Admin: 01/12/18 07:07 Dose: 100 mg Mupirocin (Bactroban Ointment) 1 gm TOP BID [facility] Last Admin: 01/11/18 17:21 Dose: 1 applic Pantoprazole Sodium (Protonix Ec Tab) 40 mg PO DAILY [facility] Last Admin: 01/11/18 09:29 Dose: 40 mg Potassium Chloride (Klor-Con 10) 10 meq PO DAILY [facility] Last Admin: 01/11/18 09:29 Dose: 10 meq - Labs Labs: 01/12/18 06:45 01/10/18 05:00 PT 12.6 SECONDS (9.4-12.5) H 01/12/18 06:45 INR 1.09 01/12/18 06:45 APTT 30.6 Seconds (25.1-36.5) 01/12/18 06:45 - Constitutional Appears: Well, Non-toxic, No Acute Distress - Head Exam Head Exam: ATRAUMATIC, NORMOCEPHALIC - Extremities Exam Additional comments: Left lower extremity exam: Vascular: DP/PT 2/4, CFT <3 secs x5, TG warm to warm from proximal leg to distal tip of toes, minimal edema and erythema noted on the lateral aspect of the midleg Derm: Serous fluid filled blister noted on the lateral aspect of the midleg with periwound erythema, distal to the blister, full thickness ulceration is noted with 100% granular base, no malodor, no drainage noted, minimal periwound erythema and edema noted. Ortho: pain on palpation to the wound NeurO: protective sensation diminished via ipswich - Neurological Exam Neurological Exam: Alert, Awake, Oriented x3 - Psychiatric Exam Psychiatric exam: Normal Affect - Skin Skin Exam: Normal Color Assessment and Plan - Assessment and Plan (Free Text) Assessment: 72 yo male seen at bedside for full thickness ulceration on the left mid leg with periwound cellulitis. Plan: Patient seen and evaluated Chart, labs and vitals reviewed; afebrile and absent leukocytosis Wound cultures taken and ordered Patient tolerated without any complications Venous ultrasound: no DVT Left lower extremity arterial ultrasound ordered Podiatry will follow the patient while in house
--- NOTE | 2018-01-12 11:34 | CP.PCM.CON ---
<Alessandro Choudhary - Last Filed: 01/12/18 12:12> History of Present Illness - History of Present Illness History of Present Illness: ICU consult note for Dr. Herrera Patient is a 72 M with history of CAD s/p CABG, vasculopathy s/p carotid endarterectomy, hypertension, DM, hyperlipidemia, and bladder cancer who presented to ED for bilateral lower extremity cellulitis which was refractory to outpatient treatment. On previous admission patient was admitted due to syncopal episode where he was found to have on neck MRA revealed 90% stenosis in proximal left internal carotid artery approximaterly 2 cm distal to origin. Patient is presenting to ICU s/p ICA stent placement. Review of Systems - Constitutional Constitutional: absent: Anorexia, Chills - EENT Eyes: absent: Change in Vision - Cardiovascular Cardiovascular: absent: Chest Pain, Edema, Radiating Pain, Syncope - Respiratory Respiratory: absent: Cough, Dyspnea - Musculoskeletal Musculoskeletal: absent: Back Pain, Neck Pain - Neurological Neurological: absent: Dizziness, Weakness - Psychiatric Psychiatric: absent: Confusion - Endocrine Endocrine: absent: Fatigue Past Patient History - Infectious Disease Hx of Infectious Diseases: None - Tetanus Immunizations Tetanus Immunization: Unknown - Past Social History Smoking Status: Former Smoker - CARDIAC Hx Pacemaker: No - PULMONARY Hx Respiratory Disorders: No Hx Asthma: No Hx Bronchitis: No Hx Chronic Obstructive Pulmonary Disease (COPD): No Hx Emphysema: No Hx Pneumonia: No Hx Respiratory Aspiration: No Hx Respiratory Tract Infection: No Hx Sleep Apnea: No - NEUROLOGICAL Hx Paralysis: No - HEENT Hx HEENT Problems: No Hx Blind: No Hx Cataracts: No Hx Deafness: No Hx Difficulty Chewing: No Hx Epistaxis: No Hx Glaucoma: No Hx Macular Degeneration: No - RENAL Hx Chronic Kidney Disease: No Hx Dialysis: No Hx Kidney Stones: No Hx Neurogenic Bladder: No Hx Pyelonephritis: No Hx Renal (Kidney) Cancer: No Hx Renal Failure: No - ENDOCRINE/METABOLIC Hx Endocrine Disorders: Yes Hx Diabetes Mellitus Type 1: Yes Hx Diabetes Mellitus Type 2: Yes Hx Hyperthyroidism: No Hx Hypothyroidism: No Hx Systemic Lupus Erythematosus: No - HEMATOLOGICAL/ONCOLOGICAL Hx Blood Transfusions: No Hx Blood Transfusion Reaction: No - INTEGUMENTARY Hx Dermatological Problems: No Hx Basil Cell: No Hx Eczema: No Hx Melanoma: No Hx Psoriasis: No Hx Squamous Cell: No - MUSCULOSKELETAL/RHEUMATOLOGICAL Hx Musculoskeletal Disorders: No - GASTROINTESTINAL Hx Gastrointestinal Disorders: No Hx Colostomy: No Hx Crohn's Disease: No Hx Diverticulitis: No Hx Gall Bladder Disease: No Hx Gastroesophageal Reflux: No Hx Ileostomy: No Hx Liver Failure: No Hx Pancreatitis: No HX Swallowing Problems: No - GENITOURINARY/GYNECOLOGICAL Hx Genitourinary Disorders: No Hx Hematuria: No Hx Incontinence: No Hx Prostate Problems: No Hx Sexually Transmitted Disorders: No Hx Urinary Tract Infection: No - PSYCHIATRIC Hx Emotional Abuse: No Hx Physical Abuse: No Hx Substance Use: No - SURGICAL HISTORY Hx Amputation: No Hx Appendectomy: No Hx Cardiac Catheterization: Yes Hx Cholecystectomy: No Hx Gastric Bypass Surgery: No Hx Hysterectomy: No Hx Joint Replacement: No Hx Kidney Transplant: No Hx Liver Transplant: No Hx Mastectomy: No Hx Musculoskeletal Surgery: No Hx Open Heart Surgery: No Hx Orthopedic Surgery: No Hx Splenectomy: No Hx Valve Replacement: No - ANESTHESIA Hx Anesthesia Reactions: No Hx Malignant Hyperthermia: No Meds Allergies/Adverse Reactions: Allergies Allergy/AdvReac Type Severity Reaction Status Date / Time No Known Allergies Allergy Verified 01/09/18 17:24 - Medications Medications: Current Medications Amlodipine Besylate (Norvasc) 10 mg PO DAILY [facility] Last Admin: 01/12/18 05:50 Dose: 10 mg Aspirin (Aspirin Chewable) 81 mg PO DAILY [facility] Last Admin: 01/12/18 07:07 Dose: 81 mg Atorvastatin Calcium (Lipitor) 40 mg PO [facility] Last Admin: 01/11/18 21:59 Dose: 40 mg Clopidogrel Bisulfate (Plavix) 75 mg PO DAILY [facility] Last Admin: 01/12/18 07:07 Dose: 75 mg Fenofibrate (Tricor) 145 mg PO DAILY [facility] Last Admin: 01/11/18 09:29 Dose: 145 mg Finasteride (Proscar) 5 mg PO DAILY [facility] Last Admin: 01/11/18 09:29 Dose: 5 mg Furosemide (Lasix) 40 mg IVP DAILY [facility] Last Admin: 01/11/18 09:30 Dose: 40 mg Gabapentin (Neurontin) 300 mg PO Q8 [facility]; Protocol Last Admin: 01/12/18 05:49 Dose: 300 mg Hydrochlorothiazide (Microzide) 12.5 mg PO DAILY [facility] Last Admin: 01/11/18 09:30 Dose: 12.5 mg Ceftriaxone Sodium (Rocephin 1 Gram Ivpb) 1 gm in 100 mls @ 100 mls/hr IVPB DAILY [facility]; Protocol Last Admin: 01/11/18 09:24 Dose: 100 mls/hr Vancomycin HCl (Vancomycin 1gm) 1 gm in 250 mls @ 167 mls/hr IVPB 0600,1800 [facility]; Protocol Last Admin: 01/12/18 05:49 Dose: 167 mls/hr Sodium Chloride (Sodium Chloride 0.45%) 1,000 mls @ 80 mls/hr IV .[id number] [facility] Stop: 01/13/18 12:00 Last Admin: 01/11/18 14:53 Dose: 80 mls/hr Insulin Detemir (Levemir) 80 unit SC HS [facility] Last Admin: 01/11/18 22:00 Dose: 80 units Insulin Human Lispro (Humalog) 25 units SC ACTID [facility] Last Admin: 01/11/18 16:26 Dose: 25 units Insulin Human Regular (Humulin R High) 0 units SC ACHS [facility]; Protocol Last Admin: 01/11/18 21:59 Dose: Not Given Losartan Potassium (Cozaar) 50 mg PO DAILY [facility] Last Admin: 01/12/18 07:07 Dose: 50 mg Metolazone (Zaroxolyn) 5 mg PO DAILY [facility] Last Admin: 01/11/18 09:26 Dose: 5 mg Metoprolol Succinate (Toprol Xl) 100 mg PO DAILY [facility] Last Admin: 01/12/18 07:07 Dose: 100 mg Mupirocin (Bactroban Ointment) 1 gm TOP BID [facility] Last Admin: 01/11/18 17:21 Dose: 1 applic Pantoprazole Sodium (Protonix Ec Tab) 40 mg PO DAILY [facility] Last Admin: 01/11/18 09:29 Dose: 40 mg Potassium Chloride (Klor-Con 10) 10 meq PO DAILY [facility] Last Admin: 01/11/18 09:29 Dose: 10 meq Physical Exam - Constitutional Appears: Non-toxic - Head Exam Head Exam: ATRAUMATIC, NORMAL INSPECTION, NORMOCEPHALIC - Eye Exam Eye Exam: EOMI, Normal appearance - ENT Exam ENT Exam: Mucous Membranes Moist, Normal Exam - Neck Exam Neck exam: Positive for: Normal Inspection - Respiratory Exam Respiratory Exam: Clear to Auscultation Bilateral, NORMAL BREATHING PATTERN - Cardiovascular Exam Cardiovascular Exam: REGULAR RHYTHM, +S1, +S2 - GI/Abdominal Exam GI & Abdominal Exam: Normal Bowel Sounds, Soft - Extremities Exam Extremities exam: Positive for: normal inspection - Back Exam Back exam: NORMAL INSPECTION - Neurological Exam Neurological exam: Alert, Oriented x3 - Psychiatric Exam Psychiatric exam: Normal Affect, Normal Mood - Skin Skin Exam: Intact, Normal Color, Warm Additional comments: no hematoma noted at site of cath Results - Vital Signs Recent Vital Signs: Last Vital Signs Temp 97.6 F 01/12/18 06:00 Pulse 85 01/12/18 07:07 Resp 20 01/12/18 06:00 BP 176/78 H 01/12/18 07:07 Pulse Ox 96 01/12/18 06:00 - Labs Result Diagrams: 01/12/18 06:45 01/10/18 05:00 Labs: Laboratory Results - last 24 hr 01/11/18 01/11/18 01/12/18 15:58 21:31 06:34 WBC RBC Hgb Hct MCV MCH MCHC RDW Plt Count MPV PT INR APTT POC Glucose (mg/dL) 324 H 179 H 158 H 01/12/18 01/12/18 06:45 06:45 WBC 5.8 RBC 4.55 Hgb 12.5 L Hct 39.1 L MCV 85.9 MCH 27.5 MCHC 32.0 RDW 14.2 Plt Count 270 MPV 9.8 PT 12.6 H INR 1.09 APTT 30.6 POC Glucose (mg/dL) Assessment & Plan - Assessment and Plan (Free Text) Assessment: 72 M with history of noncompliance, CAD s/p CABG, vascular disease s/p carotid endarterectomy, bladder cancer presenting s/p left ICA stent. Neuro -AAOx 3 Cardiovascular -Continue with Apirin and Plavix as per IR -Gentle hdyration with CHF, will give lasix PRN -Continue with NS @75 -Continue with all cardiac medications -Maintain normotension Pulm -Maintain oxygen saturation above 90% Endocrine -Maintain euglycemia -Maintain normothermia Heme -Continue with aspirin and plavix GI -Continue with GI prophylaxis ID -Continue with ceftriaxone and vanc for cellulitis treatment <Kilo Herrera - Last Filed: 01/12/18 13:27> Meds - Medications Medications: Current Medications Amlodipine Besylate (Norvasc) 10 mg PO DAILY [facility] Last Admin: 01/12/18 05:50 Dose: 10 mg Aspirin (Aspirin Chewable) 81 mg PO DAILY [facility] Last Admin: 01/12/18 07:07 Dose: 81 mg Atorvastatin Calcium (Lipitor) 40 mg PO HS [facility] Last Admin: 01/11/18 21:59 Dose: 40 mg Clopidogrel Bisulfate (Plavix) 75 mg PO DAILY [facility] Last Admin: 01/12/18 07:07 Dose: 75 mg Fenofibrate (Tricor) 145 mg PO DAILY [facility] Last Admin: 01/12/18 12:17 Dose: 145 mg Finasteride (Proscar) 5 mg PO DAILY [facility] Last Admin: 01/12/18 11:58 Dose: 5 mg Furosemide (Lasix) 40 mg IVP DAILY [facility] Last Admin: 01/12/18 11:47 Dose: 40 mg Gabapentin (Neurontin) 300 mg PO Q8 [facility]; Protocol Last Admin: 01/12/18 05:49 Dose: 300 mg Hydrochlorothiazide (Microzide) 12.5 mg PO DAILY [facility] Last Admin: 01/12/18 11:56 Dose: 12.5 mg Ceftriaxone Sodium (Rocephin 1 Gram Ivpb) 1 gm in 100 mls @ 100 mls/hr IVPB DAILY [facility]; Protocol Last Admin: 01/12/18 11:59 Dose: 100 mls/hr Vancomycin HCl (Vancomycin 1gm) 1 gm in 250 mls @ 167 mls/hr IVPB 0600,1800 [facility]; Protocol Last Admin: 01/12/18 05:49 Dose: 167 mls/hr Sodium Chloride (Sodium Chloride 0.45%) 1,000 mls @ 80 mls/hr IV .[id number] [facility] Stop: 01/13/18 12:00 Last Admin: 01/11/18 14:53 Dose: 80 mls/hr Insulin Detemir (Levemir) 80 unit SC HS [facility] Last Admin: 01/11/18 22:00 Dose: 80 units Insulin Human Lispro (Humalog) 25 units SC ACTID [facility] Last Admin: 01/12/18 11:54 Dose: 25 units Insulin Human Regular (Humulin R High) 0 units SC ACHS [facility]; Protocol Last Admin: 01/12/18 11:45 Dose: Not Given Losartan Potassium (Cozaar) 50 mg PO DAILY [facility] Last Admin: 01/12/18 07:07 Dose: 50 mg Metolazone (Zaroxolyn) 5 mg PO DAILY [facility] Last Admin: 01/12/18 12:19 Dose: 5 mg Metoprolol Succinate (Toprol Xl) 100 mg PO DAILY [facility] Last Admin: 01/12/18 07:07 Dose: 100 mg Mupirocin (Bactroban Ointment) 1 gm TOP BID [facility] Last Admin: 01/11/18 17:21 Dose: 1 applic Pantoprazole Sodium (Protonix Ec Tab) 40 mg PO DAILY [facility] Last Admin: 01/12/18 11:58 Dose: 40 mg Potassium Chloride (Klor-Con 10) 10 meq PO DAILY [facility] Last Admin: 01/12/18 11:55 Dose: 10 meq Results - Vital Signs Recent Vital Signs: Last Vital Signs Temp 97.6 F 01/12/18 06:00 Pulse 85 01/12/18 07:07 Resp 20 01/12/18 06:00 BP 118/49 L 01/12/18 11:47 Pulse Ox 96 01/12/18 06:00 - Labs Result Diagrams: 01/12/18 06:45 01/10/18 05:00 Labs: Laboratory Results - last 24 hr 01/11/18 01/11/18 01/12/18 15:58 21:31 06:34 WBC RBC Hgb Hct MCV MCH MCHC RDW Plt Count MPV PT INR APTT POC Glucose (mg/dL) 324 H 179 H 158 H 01/12/18 01/12/18 06:45 06:45 WBC 5.8 RBC 4.55 Hgb 12.5 L Hct 39.1 L MCV 85.9 MCH 27.5 MCHC 32.0 RDW 14.2 Plt Count 270 MPV 9.8 PT 12.6 H INR 1.09 APTT 30.6 POC Glucose (mg/dL) Assessment & Plan - Assessment and Plan (Free Text) Assessment: Patient seen and examined, with resident, agree with note with following additions/exceptions: Patient is 72yo male with PMHx of noncompliance, CAD s/p CABG, vascular disease s/p carotid endarterectomy, bladder cancer presenting s/p left ICA stent. Currently afebrile, BP stable, comfortable in NAD< non focal neurological exam Cont with IVF Cont with Rocephin Vanco for cellulitis FS control Follow up IR GI ppx DVT ppx Monitor in MICU
[2018-01-12] MEDS: Insulin Reg-HIGH-Coverage SC SCH ×3 (11:45→22:56)
[2018-01-12] MEDS: Insulin Lispro 1 UNITS/0.01 ML SC SCH ×2 (11:54→16:46)
[2018-01-12] MEDS: Potassium Chloride 10 mEq ER Tab PO SCH (11:55)
[2018-01-12] MEDS: Pantoprazole 40 mg EC Tab PO SCH (11:58)
[2018-01-12] MEDS: cefTRIAXone 1 gm 1 GM/100 ML BAG IVPB SCH (11:59)
[2018-01-12] MEDS: metOLazone 5 MG TAB PO SCH (12:19)
--- NOTE | 2018-01-12 17:06 | VASCULAR ---
PROCEDURE: 1. Arch arteriogram 2. Selective right carotid arteriogram 3. Bilateral vertebral arteriograms 4. Left internal carotid artery angioplasty and stent placement with proximal flow reversal and distal filter wire protection 5. Left vertebral artery origin angioplasty and stent placement HISTORY: Previous left carotid endarterectomy with critical recurrent stenosis. 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 Previous left frontal lobe CVA. PHYSICIAN(S): Rahul Guerrero MD. TECHNIQUE: The relative risks and indications of the procedure were explained to the patient and his and consent obtained. The patient was on Plavix prior to procedure. The patient was placed supine on the arteriogram table and the right groin prepped and draped in usual sterile fashion. Conscious sedation monitoring were provided throughout the procedure by a nurse. The right common femoral artery was punctured under ultrasound guidance with a micropuncture set. A 9 Swedish short sheath was placed. A 5 Swedish flush catheter was placed the aortic arch and an AZERI DSA arch arteriogram performed. The catheter was exchanged for a 5 Swedish day this catheter placed at the origin of the right vertebral artery. A DSA right vertebral arteriogram was performed. The catheter was placed in the right common carotid artery and a DSA right carotid arteriogram consisting of the bifurcation and intracranial views performed. Next a catheter was placed the origin of the left vertebral artery and a DSA left vertebral arteriogram performed. The day this catheter was placed in the left common carotid artery. A DSA left carotid arteriogram was performed. A glidewire and a 5 Swedish catheter were advanced into the left external carotid artery. Exchange is made for 0.035 Amplatz guidewire. Next, The MOMA occlusion balloon catheter was advanced with the distal balloon in the proximal left external carotid artery. The distal balloon was inflated in the left external carotid artery. The proximal balloon was then inflated in the mid to distal left common carotid artery. Heparin was given previously. An [employer] filter wire was used to cross the critical stenosis in the proximal left internal carotid artery. The filter wire was deployed. The severe stenosis in the proximal left internal carotid artery was pre dilated with a 4 mm balloon. Next a tapered 10-8 x 40 self expanding stent was deployed in the proximal left internal carotid artery. The residual narrowing was dilated with a 6 mm balloon. Aspiration x3 was performed through the MOMA catheter. The filter wire was removed. The distal balloon was deflated. The proximal balloon was deflated. Completion arteriograms were performed of the stent and intracranial circulation. The day this catheter and a 5 Swedish wire were advanced out the left subclavian artery. The MOMA balloon occlusion catheter was exchanged for a 7 Swedish 70 cm Raabe a sheath in the proximal left subclavian artery. Additional imaging of the left vertebral artery origin was performed with the 5 Swedish catheter. A 0.035 glidewire was used to negotiate the tortuous origin. Exchange is made for a 0.014 support wire. A 6 mm by 15 mm balloon expandable stent was deployed the origin of the left vertebral artery. Completion angiograms were obtained. The sheath was removed and hemostasis obtained with a Perclose device. The patient tolerated the procedure well without obvious neurologic deficit. He was transferred to the ICU for additional monitoring FINDINGS: The arch arteriogram is limited by motion. The 3 great vessels are patent. The left vertebral artery is dominant. The right vertebral artery is atretic There is a high-grade stenosis at the origin of the right vertebral artery. There is an 80 percent stenosis of the tortuous origin of the dominant left vertebral artery. The proximal right internal carotid artery is widely patent. Mild disease of the right external carotid artery is noted. The right M1 and A1 segments are patent. Cross-filling of the left hemisphere is noted on the right injection via cortical branches. There is a critical stenosis of the proximal left internal carotid artery 2 cm from its origin. The left external carotid artery is widely patent. There is postoperative changes of the distal left common carotid artery. After angioplasty and stent placement the proximal left internal carotid artery is widely patent. No evidence of macro emboli in the left intracranial circulation is appreciated after stent placement. The left vertebral artery origin is widely patent after stent placement. There is mild spasm placement without a significant residual stenosis. IMPRESSION: 1. Successful left internal carotid artery angioplasty and stent placement with proximal occlusion and distal filter wire protection. The patient should remain on aspirin and Plavix for at least 6 months 2. Successful left vertebral artery origin angioplasty and stent placement 3. Widely patent right carotid bifurcation. 4. Atretic right vertebral artery with high-grade stenosis at its origin
[2018-01-12] MEDS: Insulin Detemir 100 units/ml Vial (Levemir) SC SCH (22:05)
--- NOTE | 2018-01-12 22:16 | PN ---
DATE: 01/12/2018 SUBJECTIVE: The patient is a 72-year-old, seen and examined. The patient was admitted because of increasing bilateral leg swelling and intermittent dizziness. The patient already has scheduled procedure for carotid angioplasty that he underwent this morning, it was uneventful and being admitted in ICU for close monitoring. PHYSICAL EXAMINATION: GENERAL: Today, he is awake, alert, oriented, communicative. VITAL SIGNS: He is afebrile, pulse 77, respirations 15, blood pressure 113/63. LUNGS: Bilateral fair airflow. No rhonchi or crackle. HEART: S1 and S2 audible. ABDOMEN: Soft, obese, nontender. No rebound, no guarding. NEUROLOGIC: He is awake, alert and oriented, communicative. Moves all extremities, his upper and lower extremities. No motor or sensory deficit. LABORATORY DATA: WBC is 5.8, hemoglobin 12.5, hematocrit 39.1 and platelets 270. Chemistry: Blood sugar is 74. His blood cultures and urine cultures are negative. ASSESSMENT AND PLAN: 1. Bilateral leg cellulitis. 2. Status post carotid endarterectomy. 3. Hypertension. 4. Coronary artery disease. 5. Hyperlipidemia. 6. Insulin-dependent diabetes. PLAN: Currently, the patient is on IV fluids for a total of 24 hours. We will continue on aspirin and Plavix. He is on losartan. We will continue on statins. After 24 hours, the patient will be transferred to medical/surgical floor and will make further recommendations after reviewing the patient. Dot Carney MD
[2018-01-12] MEDS: Mupirocin 2% Ointment 15 GM TUBE TOP SCH (22:28)
[2018-01-13] MEDS: Sodium Chloride 0.45% 1,000 ML IV SCH (05:33)
--- NOTE | 2018-01-13 07:55 | CARD ---
APPROVED REPORT Date of service: 01/12/2018 EKG Measurement Heart [id number] <Conclusion> Sinus rhythm with 1st degree AVB RBBB NSSTW changes
[2018-01-13] MEDS: Insulin Reg-HIGH-Coverage SC SCH ×3 (08:00→16:03)
[2018-01-13] MEDS: Insulin Lispro 1 UNITS/0.01 ML SC SCH ×3 (08:00→16:03)
--- NOTE | 2018-01-13 08:01 | CP.CCUPN ---
<Alessandro Choudhary - Last Filed: 01/13/18 12:11> CCU Subjective - Physician Review Subjective (Free Text): 01/13/18 07:56 Patient seen and examined at bedside with no acute distress. Patient denies any complaints overnight. Denies shortness of breath, palpitations, chest pain, neck pain, abdominal pain, nausea, vomiting, diarrhea, fevers, chills. CCU Objective - Vital Signs / Intake & Output Intake and Output (Last 8hrs): Intake & Output 01/12/18 01/13/18 01/13/18 22:59 06:59 14:59 Intake Total 940 Output Total 1200 Balance -260 Intake: IV 640 Left Hand 640 Oral 300 Output: Urine 1200 Urine, Voided 1200 Other: # Bowel Movements 0 - Physical Exam Head: Positive for: Atraumatic, Normocephalic Pupils: Positive for: PERRL Extroacular Muscles: Positive for: EOMI Conjunctiva: Positive for: Normal Mouth: Positive for: Moist Mucous Membranes Neck: Positive for: Normal Range of Motion Respiratory/Chest: Positive for: Clear to Auscultation, Good Air Exchange. Negative for: Respiratory Distress, Accessory Muscle Use, Wheezes, Rales, Rhonchi Cardiovascular: Positive for: Regular Rate and Rhythm, Normal S1, S2 Abdomen: Positive for: Normal Bowel Sounds. Negative for: Tenderness, Distention, Peritoneal Signs, Rebound, Guarding, Mass/Organomegaly Back: Positive for: Normal Inspection Upper Extremity: Positive for: Normal Inspection, Normal ROM, NORMAL PULSES, Capillary Refill < 2s. Negative for: Cyanosis, Edema, Tenderness, Swelling, Erythema Lower Extremity: Positive for: Normal Inspection, CALF TENDERNESS (b/l ), NORMAL PULSES, Normal ROM, Swelling (L>R), Erythema, Capillary Refill < 2 s Neurological: Positive for: GCS=15, Speech Normal Skin: Positive for: Warm, Dry, Rashes (b/l LE cellulitis), Erythematous (b/l LE) Psychiatric: Positive for: Alert, Oriented x 3, Normal Insight, Normal Concentration - Medications Active Medications: Active Medications Generic Name Dose Route Start Last Admin Trade Name Freq PRN Reason Stop Dose Admin Amlodipine Besylate 10 mg 01/10/18 10:00 01/12/18 05:50 Norvasc PO 10 mg DAILY CLAUDIA Administration Aspirin 81 mg 01/10/18 10:00 01/12/18 07:07 Aspirin Chewable PO 81 mg DAILY CLAUDIA Administration Atorvastatin Calcium 40 mg 01/09/18 22:00 01/12/18 23:07 Lipitor PO 40 mg HS CLAUDIA Administration Clopidogrel Bisulfate 75 mg 01/12/18 10:00 01/12/18 07:07 Plavix PO 75 mg DAILY CLAUDIA Administration Fenofibrate 145 mg 01/10/18 10:00 01/12/18 12:17 Tricor PO 145 mg DAILY CLAUDIA Administration Finasteride 5 mg 01/10/18 10:00 01/12/18 11:58 Proscar PO 5 mg DAILY CLAUDIA Administration Furosemide 40 mg 01/10/18 10:00 01/12/18 11:47 Lasix IVP 40 mg DAILY CLAUDIA Administration Gabapentin 300 mg 01/10/18 22:00 01/13/18 05:30 Neurontin PO 300 mg Q8 CLAUDIA Administration Protocol Hydrochlorothiazide 12.5 mg 01/10/18 10:00 01/12/18 11:56 Microzide PO 12.5 mg DAILY CLAUDIA Administration Ceftriaxone Sodium 1 gm in 100 mls @ 100 mls/hr 01/10/18 10:00 01/12/18 11:59 Rocephin 1 Gram Ivpb IVPB 100 mls/hr DAILY CLAUDIA Administration Protocol Vancomycin HCl 1 gm in 250 mls @ 167 mls/hr 01/10/18 06:00 01/12/18 17:48 Vancomycin 1gm IVPB 167 mls/hr 0600,1800 CLAUDIA Administration Protocol Sodium Chloride 1,000 mls @ 80 mls/hr 01/11/18 14:30 01/13/18 05:33 Sodium Chloride 0.45% IV 01/13/18 12:00 80 mls/hr .[id number] CLAUDIA Administration Insulin Detemir 80 unit 01/09/18 22:00 01/12/18 22:05 Levemir SC 80 units HS CLAUDIA Administration Insulin Human Lispro 25 units 01/11/18 16:30 01/12/18 16:46 Humalog SC Not Given ACTID CLAUDIA Insulin Human Regular 0 units 01/10/18 22:00 01/12/18 22:56 Humulin R High SC Not Given ACHS CLAUDIA Protocol Losartan Potassium 50 mg 01/11/18 12:32 01/12/18 07:07 Cozaar PO 50 mg DAILY CLAUDIA Administration Metolazone 5 mg 01/10/18 10:00 01/12/18 12:19 Zaroxolyn PO 5 mg DAILY CLAUDIA Administration Metoprolol Succinate 100 mg 01/10/18 10:00 01/12/18 07:07 Toprol Xl PO 100 mg DAILY CLAUDIA Administration Mupirocin 1 gm 01/11/18 11:15 01/12/18 22:28 Bactroban Ointment TOP 1 applic BID CLAUDIA Administration Pantoprazole Sodium 40 mg 01/10/18 10:00 01/12/18 11:58 Protonix Ec Tab PO 40 mg DAILY CLAUDIA Administration Potassium Chloride 10 meq 01/10/18 10:00 01/12/18 11:55 Klor-Con 10 PO 10 meq DAILY CLAUDIA Administration - Patient Studies Lab Studies: Microbiology Studies 01/09/18 19:00 Blood Culture - Preliminary Blood-Venous NO GROWTH AFTER 3 DAYS 01/09/18 18:40 Blood Culture - Preliminary Blood-Venous NO GROWTH AFTER 3 DAYS 01/11/18 14:10 Gram Stain - Final Calf - Right Wound Culture - Preliminary NO GROWTH AFTER 24 HOURS Lab Studies 01/12/18 01/12/18 01/12/18 Range/Units 16:41 16:03 11:26 POC Glucose (mg/dL) 74 69 126 H (65-110) mg/dL Laboratory Results - last 24 hr 01/12/18 01/12/18 01/12/18 11:26 16:03 16:41 POC Glucose (mg/dL) 126 H 69 74 EKG/Cardiology Studies: Cardiology / EKG Studies 01/12/18 16:50 EKG [ELECTROCARDIOGRAM] Routine Comment: Reason For Exam: baseline Fingerstick Blood Sugar Results: 162 Review of Systems - EENT Eyes: absent: Blurred Vision Ears: absent: Dizziness Nose/Mouth/Throat: absent: Neck Pain - Cardiovascular Cardiovascular: absent: Chest Pain, Pain Radiating to Arm/Neck/Jaw - Gastrointestinal Gastrointestinal: absent: Abdominal Pain, Diarrhea, Nausea, Vomiting - Genitourinary Genitourinary: absent: Dysuria - Musculoskeletal Musculoskeletal: absent: Back Pain, Muscle Weakness, Tingling - Neurological Neurological: absent: Dizziness - Psychiatric Psychiatric: absent: Anxiety - Endocrine Endocrine: absent: Fatigue Critical Care Progress Note - Nutrition Nutrition: Nutrition Category Date Time Status Heart Healthy Diet [DIET] Diets 01/12/18 Lunch Active Assessment/Plan - Assessment and Plan (Free Text) Assessment: 72 M with history of noncompliance, CAD s/p CABG, vascular disease s/p carotid endarterectomy, bladder cancer presenting s/p left ICA stent admitted to ICU for monitoring. Neuro -AAOx 3 Cardiovascular -Continue with Apirin and Plavix -Continue with antihypertensives -Continue with statin therapy Pulm -Maintain oxygen saturation above 90% Endocrine -Continue with levemir and humalog -Maintain normothermia Heme -Continue with aspirin and plavix GI -Continue with GI prophylaxis ID -Continue with ceftriaxone and vancomycin for cellulitis treatment Disposition: patient to be transferred to med-surg so patient can ambulate as per primary medical team. <Chandler Gomes - Last Filed: 01/13/18 14:53> CCU Objective - Vital Signs / Intake & Output Vital Signs (Last 4 hours): Vital Signs Temp Pulse Resp BP 01/13/18 14:00 75 27 H 01/13/18 12:01 91 H 26 H 138/63 01/13/18 12:00 98 F 93 H 20 Intake and Output (Last 8hrs): Intake & Output 01/12/18 01/13/18 01/13/18 22:59 06:59 14:59 Intake Total 940 1200 Output Total 1200 1000 Balance -260 200 Weight 96.615 kg Intake: IV 640 960 Left Hand 640 Right Forearm 960 Oral 300 240 Output: Urine 1200 1000 Urine, Voided 1200 1000 Other: # Bowel Movements 0 - Medications Active Medications: Active Medications Generic Name Dose Route Start Last Admin Trade Name Freq PRN Reason Stop Dose Admin Amlodipine Besylate 10 mg 01/10/18 10:00 01/13/18 09:10 Norvasc PO 10 mg DAILY CLAUDIA Administration Aspirin 81 mg 01/10/18 10:00 01/13/18 09:08 Aspirin Chewable PO 81 mg DAILY CLAUDIA Administration Atorvastatin Calcium 40 mg 01/09/18 22:00 01/12/18 23:07 Lipitor PO 40 mg HS CLAUDIA Administration Clopidogrel Bisulfate 75 mg 01/12/18 10:00 01/13/18 09:08 Plavix PO 75 mg DAILY CLAUDIA Administration Fenofibrate 145 mg 01/10/18 10:00 01/13/18 09:10 Tricor PO 145 mg DAILY CLAUDIA Administration Finasteride 5 mg 01/10/18 10:00 01/13/18 09:08 Proscar PO 5 mg DAILY CLAUDIA Administration Furosemide 40 mg 01/10/18 10:00 01/13/18 09:09 Lasix IVP 40 mg DAILY CLAUDIA Administration Gabapentin 300 mg 01/10/18 22:00 01/13/18 13:05 Neurontin PO 300 mg Q8 CLAUDIA Administration Protocol Hydrochlorothiazide 12.5 mg 01/10/18 10:00 01/13/18 09:10 Microzide PO 12.5 mg DAILY CLAUDIA Administration Ceftriaxone Sodium 1 gm in 100 mls @ 100 mls/hr 01/10/18 10:00 01/13/18 09:11 Rocephin 1 Gram Ivpb IVPB 100 mls/hr DAILY CLAUDIA Administration Protocol Vancomycin HCl 1 gm in 250 mls @ 167 mls/hr 01/10/18 06:00 01/13/18 09:10 Vancomycin 1gm IVPB 167 mls/hr 0600,1800 CLAUDIA Administration Protocol Insulin Detemir 80 unit 01/09/18 22:00 01/12/18 22:05 Levemir SC 80 units HS CLAUDIA Administration Insulin Human Lispro 25 units 01/11/18 16:30 01/13/18 11:48 Humalog SC 25 units ACTID CLAUDIA Administration Insulin Human Regular 0 units 01/10/18 22:00 01/13/18 11:47 Humulin R High SC 2 units ACHS CLAUDIA Administration Protocol Losartan Potassium 50 mg 01/11/18 12:32 01/13/18 09:10 Cozaar PO 50 mg DAILY CLAUDIA Administration Metolazone 5 mg 01/10/18 10:00 01/13/18 09:09 Zaroxolyn PO 5 mg DAILY CLAUDIA Administration Metoprolol Succinate 100 mg 01/10/18 10:00 01/13/18 09:09 Toprol Xl PO 100 mg DAILY CLAUDIA Administration Mupirocin 1 gm 01/11/18 11:15 01/13/18 11:51 Bactroban Ointment TOP 1 applic BID CLAUDIA Administration Pantoprazole Sodium 40 mg 01/10/18 10:00 01/13/18 09:08 Protonix Ec Tab PO 40 mg DAILY CLAUDIA Administration Potassium Chloride 10 meq 01/10/18 10:00 01/13/18 09:08 Klor-Con 10 PO 10 meq DAILY CLAUDIA Administration - Patient Studies Lab Studies: Microbiology Studies 01/12/18 11:00 MRSA Culture (Admit) - Final Naris MRSA NOT DETECTED 01/11/18 14:10 Gram Stain - Final Calf - Right Wound Culture - Preliminary No growth. 01/09/18 19:00 Blood Culture - Preliminary Blood-Venous NO GROWTH AFTER 3 DAYS 01/09/18 18:40 Blood Culture - Preliminary Blood-Venous NO GROWTH AFTER 3 DAYS Lab Studies 01/13/18 01/13/18 01/13/18 Range/Units 09:19 09:18 07:27 WBC 7.7 D (4.5-11.0) 10^3/ul RBC 4.36 (3.5-6.1) 10^6/uL Hgb 12.2 L (14.0-18.0) g/dL Hct 37.2 L (42.0-52.0) % MCV 85.3 (80.0-105.0) fl MCH 28.0 (25.0-35.0) pg MCHC 32.8 (31.0-37.0) g/dl RDW 14.0 (11.5-14.5) % Plt Count 232 (120.0-450.0) 10^3/uL MPV 9.4 (7.0-11.0) fl Gran % 74.7 H (50.0-68.0) % Lymph % (Auto) 13.9 L (22.0-35.0) % Kinney % (Auto) 10.2 H (1.0-6.0) % Eos % (Auto) 0.9 L (1.5-5.0) % Baso % (Auto) 0.3 (0.0-3.0) % Gran # 5.76 (1.4-6.5) Lymph # (Auto) 1.1 L (1.2-3.4) Kinney # (Auto) 0.8 H (0.1-0.6) Eos # (Auto) 0.1 (0.0-0.7) Baso # (Auto) 0.02 (0.0-2.0) K/mm3 Sodium 137 (132-148) mmol/L Potassium 4.1 (3.6-5.0) mmol/L Chloride 99 (98-107) mmol/L Carbon Dioxide 26 (21-33) mmol/L Anion Gap 15 (10-20) BUN 35 H (7-21) mg/dL Creatinine 1.8 H (0.8-1.5) mg/dl Est GFR ( Amer) 45 Est GFR (Non-Af Amer) 37 POC Glucose (mg/dL) 107 (65-110) mg/dL Random Glucose 196 H (70-110) mg/dL Calcium 9.6 (8.4-10.5) mg/dL 01/12/18 01/12/18 01/12/18 Range/Units 22:31 16:41 16:03 WBC (4.5-11.0) 10^3/ul RBC (3.5-6.1) 10^6/uL Hgb (14.0-18.0) g/dL Hct (42.0-52.0) % MCV (80.0-105.0) fl MCH (25.0-35.0) pg MCHC (31.0-37.0) g/dl RDW (11.5-14.5) % Plt Count (120.0-450.0) 10^3/uL MPV (7.0-11.0) fl Gran % (50.0-68.0) % Lymph % (Auto) (22.0-35.0) % Kinney % (Auto) (1.0-6.0) % Eos % (Auto) (1.5-5.0) % Baso % (Auto) (0.0-3.0) % Gran # (1.4-6.5) Lymph # (Auto) (1.2-3.4) Kinney # (Auto) (0.1-0.6) Eos # (Auto) (0.0-0.7) Baso # (Auto) (0.0-2.0) K/mm3 Sodium (132-148) mmol/L Potassium (3.6-5.0) mmol/L Chloride (98-107) mmol/L Carbon Dioxide (21-33) mmol/L Anion Gap (10-20) BUN (7-21) mg/dL Creatinine (0.8-1.5) mg/dl Est GFR ( Amer) Est GFR (Non-Af Amer) POC Glucose (mg/dL) 162 H 74 69 (65-110) mg/dL Random Glucose (70-110) mg/dL Calcium (8.4-10.5) mg/dL 01/12/18 Range/Units 11:26 WBC (4.5-11.0) 10^3/ul RBC (3.5-6.1) 10^6/uL Hgb (14.0-18.0) g/dL Hct (42.0-52.0) % MCV (80.0-105.0) fl MCH (25.0-35.0) pg MCHC (31.0-37.0) g/dl RDW (11.5-14.5) % Plt Count (120.0-450.0) 10^3/uL MPV (7.0-11.0) fl Gran % (50.0-68.0) % Lymph % (Auto) (22.0-35.0) % Kinney % (Auto) (1.0-6.0) % Eos % (Auto) (1.5-5.0) % Baso % (Auto) (0.0-3.0) % Gran # (1.4-6.5) Lymph # (Auto) (1.2-3.4) Kinney # (Auto) (0.1-0.6) Eos # (Auto) (0.0-0.7) Baso # (Auto) (0.0-2.0) K/mm3 Sodium (132-148) mmol/L Potassium (3.6-5.0) mmol/L Chloride (98-107) mmol/L Carbon Dioxide (21-33) mmol/L Anion Gap (10-20) BUN (7-21) mg/dL Creatinine (0.8-1.5) mg/dl Est GFR ( Amer) Est GFR (Non-Af Amer) POC Glucose (mg/dL) 126 H (65-110) mg/dL Random Glucose (70-110) mg/dL Calcium (8.4-10.5) mg/dL Laboratory Results - last 24 hr 01/12/18 01/12/18 01/12/18 11:26 16:03 16:41 WBC RBC Hgb Hct MCV MCH MCHC RDW Plt Count MPV Gran % Lymph % (Auto) Kinney % (Auto) Eos % (Auto) Baso % (Auto) Gran # Lymph # (Auto) Kinney # (Auto) Eos # (Auto) Baso # (Auto) Sodium Potassium Chloride Carbon Dioxide Anion Gap BUN Creatinine Est GFR ( Amer) Est GFR (Non-Af Amer) POC Glucose (mg/dL) 126 H 69 74 Random Glucose Calcium 01/12/18 01/13/18 01/13/18 22:31 07:27 09:18 WBC RBC Hgb Hct MCV MCH MCHC RDW Plt Count MPV Gran % Lymph % (Auto) Kinney % (Auto) Eos % (Auto) Baso % (Auto) Gran # Lymph # (Auto) Kinney # (Auto) Eos # (Auto) Baso # (Auto) Sodium 137 Potassium 4.1 Chloride 99 Carbon Dioxide 26 Anion Gap 15 BUN 35 H Creatinine 1.8 H Est GFR ( Amer) 45 Est GFR (Non-Af Amer) 37 POC Glucose (mg/dL) 162 H 107 Random Glucose 196 H Calcium 9.6 01/13/18 09:19 WBC 7.7 D RBC 4.36 Hgb 12.2 L Hct 37.2 L MCV 85.3 MCH 28.0 MCHC 32.8 RDW 14.0 Plt Count 232 MPV 9.4 Gran % 74.7 H Lymph % (Auto) 13.9 L Kinney % (Auto) 10.2 H Eos % (Auto) 0.9 L Baso % (Auto) 0.3 Gran # 5.76 Lymph # (Auto) 1.1 L Kinney # (Auto) 0.8 H Eos # (Auto) 0.1 Baso # (Auto) 0.02 Sodium Potassium Chloride Carbon Dioxide Anion Gap BUN Creatinine Est GFR ( Amer) Est GFR (Non-Af Amer) POC Glucose (mg/dL) Random Glucose Calcium EKG/Cardiology Studies: Cardiology / EKG Studies 01/12/18 16:50 EKG [ELECTROCARDIOGRAM] Routine Comment: Reason For Exam: baseline Critical Care Progress Note - Nutrition Nutrition: Nutrition Category Date Time Status Heart Healthy Diet [DIET] Diets 01/12/18 Lunch Active Addendum Addendum: 01/13/18 14:53 ICU Attending Addendum Patient seen and examined. Case reviewed on round with housestaff. Agree with resident note above with the following additions/exceptions: 72M CAD/ CABG with carotid stenosis s/p CEA stable post-procedure cont dual anti-plat as per vascular on abx for cellulitis, as per ID No longer requires ICU level care ok to transfer rest of care above Chandler Gomes MD [employer]
[2018-01-13] MEDS: Potassium Chloride 10 mEq ER Tab PO SCH (09:08)
[2018-01-13] MEDS: Pantoprazole 40 mg EC Tab PO SCH (09:08)
[2018-01-13] MEDS: metOLazone 5 MG TAB PO SCH (09:09)
[2018-01-13] MEDS: Metoprolol Succinate 100 mg XL Tab PO SCH (09:09)
[2018-01-13] MEDS: Vancomycin 1gm in NS 250ml 1 GM/250 ML BAG IVPB SCH ×2 (09:10→17:26)
[2018-01-13] MEDS: cefTRIAXone 1 gm 1 GM/100 ML BAG IVPB SCH (09:11)
[2018-01-13 11:02] LABS: BASO # 0.02 K/mm3 (0.0-2.0); BASO % 0.3 % (0.0-3.0); EOS # 0.1 (0.0-0.7); EOS % 0.9 % (1.5-5.0); GRAN # 5.76 (1.4-6.5); GRAN % 74.7 % (50.0-68.0); HEMOGLOBIN 12.2 g/dL (14.0-18.0); LYMPH # 1.1 (1.2-3.4); LYMPH % 13.9 % (22.0-35.0); MEAN CELL VOLUME 85.3 fl (80.0-105.0); MEAN CORPUSCULAR HGB CONC 32.8 g/dl (31.0-37.0); MEAN PLATELET VOLUME 9.4 fl (7.0-11.0); MONO # 0.8 (0.1-0.6); MONO % 10.2 % (1.0-6.0); RBC 4.36 10^6/uL (3.5-6.1); WHITE BLOOD COUNT 7.7 10^3/ul (4.5-11.0)
[2018-01-13 11:08] LABS: CALCIUM 9.6 mg/dL (8.4-10.5)
--- NOTE | 2018-01-13 11:34 | US ---
PROCEDURE: Lower extremity SATNAM exam HISTORY: Peripheral vascular disease with pain and right pretibial ulceration. Diabetes. Previous smoker. PHYSICIAN(S): Rahul Guerrero MD. FINDINGS: The resting SATNAM's are normal: right, 1.21and left, 1.16. The brachial systolic pressures are symmetric. The high thigh pressures and waveforms are relatively normal. The calf PVR waveforms augment normally. No significant gradients are noted across the thighs. The ankle and metatarsal waveforms are relatively normal and symmetric. No significant pressure gradients are noted across the lower legs. IMPRESSION: 1. Normal SATNAM and PVR examination at rest.
[2018-01-13] MEDS: Mupirocin 2% Ointment 15 GM TUBE TOP SCH ×2 (11:51→17:27)
--- NOTE | 2018-01-13 12:25 | CP.PCM.PN ---
Subjective - Date & Time of Evaluation Date of Evaluation: 01/13/18 Time of Evaluation: 12:22 - Subjective Subjective: Podiatry progress note for Dr. Metcalf/ dr siegel 72 yo M with PMHx of HTN, HLD, DM, diabetic neuropathy, hx bladder cancer seen at bedside for recurrent b/l LE cellulitis with blister and a wound on the midleg. Patient states he is getting discharged from the hospital today. Patient complains of burning sensation to b/l LE. Denies fevers/chills, headaches, chest pain, palpitations, sob, cough, abdominal pain, n/v/d/c Objective - Vital Signs/Intake and Output Vital Signs (last 24 hours): Temp Pulse Resp BP Pulse Ox 97.6 F 82 11 L 127/87 91 L 01/12/18 06:00 01/13/18 09:10 01/12/18 14:40 01/13/18 09:10 01/12/18 14:40 Intake and Output: 01/13/18 01/13/18 06:59 18:59 Intake Total 1200 Output Total 1000 Balance 200 - Medications Medications: Current Medications Amlodipine Besylate (Norvasc) 10 mg PO DAILY [facility] Last Admin: 01/13/18 09:10 Dose: 10 mg Aspirin (Aspirin Chewable) 81 mg PO DAILY [facility] Last Admin: 01/13/18 09:08 Dose: 81 mg Atorvastatin Calcium (Lipitor) 40 mg PO HS [facility] Last Admin: 01/12/18 23:07 Dose: 40 mg Clopidogrel Bisulfate (Plavix) 75 mg PO DAILY [facility] Last Admin: 01/13/18 09:08 Dose: 75 mg Fenofibrate (Tricor) 145 mg PO DAILY [facility] Last Admin: 01/13/18 09:10 Dose: 145 mg Finasteride (Proscar) 5 mg PO DAILY [facility] Last Admin: 01/13/18 09:08 Dose: 5 mg Furosemide (Lasix) 40 mg IVP DAILY [facility] Last Admin: 01/13/18 09:09 Dose: 40 mg Gabapentin (Neurontin) 300 mg PO Q8 [facility]; Protocol Last Admin: 01/13/18 05:30 Dose: 300 mg Hydrochlorothiazide (Microzide) 12.5 mg PO DAILY [facility] Last Admin: 01/13/18 09:10 Dose: 12.5 mg Ceftriaxone Sodium (Rocephin 1 Gram Ivpb) 1 gm in 100 mls @ 100 mls/hr IVPB DAILY [facility]; Protocol Last Admin: 01/13/18 09:11 Dose: 100 mls/hr Vancomycin HCl (Vancomycin 1gm) 1 gm in 250 mls @ 167 mls/hr IVPB 0600,1800 [facility]; Protocol Last Admin: 01/13/18 09:10 Dose: 167 mls/hr Insulin Detemir (Levemir) 80 unit SC HS [facility] Last Admin: 01/12/18 22:05 Dose: 80 units Insulin Human Lispro (Humalog) 25 units SC ACTID [facility] Last Admin: 01/13/18 11:48 Dose: 25 units Insulin Human Regular (Humulin R High) 0 units SC ACHS [facility]; Protocol Last Admin: 01/13/18 11:47 Dose: 2 units Losartan Potassium (Cozaar) 50 mg PO DAILY [facility] Last Admin: 01/13/18 09:10 Dose: 50 mg Metolazone (Zaroxolyn) 5 mg PO DAILY [facility] Last Admin: 01/13/18 09:09 Dose: 5 mg Metoprolol Succinate (Toprol Xl) 100 mg PO DAILY [facility] Last Admin: 01/13/18 09:09 Dose: 100 mg Mupirocin (Bactroban Ointment) 1 gm TOP BID [facility] Last Admin: 01/13/18 11:51 Dose: 1 applic Pantoprazole Sodium (Protonix Ec Tab) 40 mg PO DAILY [facility] Last Admin: 01/13/18 09:08 Dose: 40 mg Potassium Chloride (Klor-Con 10) 10 meq PO DAILY [facility] Last Admin: 01/13/18 09:08 Dose: 10 meq - Labs Labs: 01/13/18 09:19 01/13/18 09:18 PT 12.6 SECONDS (9.4-12.5) H 01/12/18 06:45 INR 1.09 01/12/18 06:45 APTT 30.6 Seconds (25.1-36.5) 01/12/18 06:45 - Constitutional Appears: Well, Non-toxic, No Acute Distress - Head Exam Head Exam: ATRAUMATIC, NORMOCEPHALIC - Extremities Exam Additional comments: Right lower extremity exam: Vascular: DP/PT 2/4, CFT <3 secs x5, TG warm to warm from proximal leg to distal tip of toes, minimal edema and erythema noted on the lateral aspect of the midleg Derm: full thickness ulceration to lateral aspect of the mid legis noted with hypergranular base, no malodor, no drainage noted, periwound erythema and edema noted. Ortho: pain on palpation to the wound NeurO: protective sensation diminished via ipswich - Neurological Exam Neurological Exam: Alert, Awake - Psychiatric Exam Psychiatric exam: Normal Affect - Skin Skin Exam: Normal Color Assessment and Plan - Assessment and Plan (Free Text) Assessment: 72 yo male seen at bedside for full thickness ulceration on the left mid leg with periwound cellulitis; resolving Plan: Patient seen and evaluated Chart, labs and vitals reviewed; afebrile and absent leukocytosis Wound cultures taken and ordered; no growth Left lower extremity arterial ultrasound ordered: normal christy/pvr at rest Venous ultrasound ordered: no DVT Wound dressed with DSD Patient stable for discharge; please dress wound daily with silver dressing and DSD Patient will follow up with Dr. Metcalf in the wound care center upon discharge within a week Podiatry will follow the patient while in house
[2018-01-13 16:58] VITALS: RESP 18
--- NOTE | 2018-01-13 20:23 | PN ---
DATE: 01/13/2018 SUBJECTIVE: The patient is 72 years old, seen and examined, doing well. Had carotid angioplasty done yesterday. Bilateral leg swelling seems to be improving. PHYSICAL EXAMINATION: VITAL SIGNS: He is afebrile, pulse 73, respirations 18, blood pressure 115/67. LUNGS: Bilateral fair airflow. No rhonchi or crackle. HEART: S1 and S2 audible. ABDOMEN: Soft, obese, nontender. No rebound. No guarding. NEUROLOGICAL: Patient is awake, alert, oriented, communicative. Moves all extremities. No focal, sensory or motor deficit. LABORATORY EXAM: WBC 7.7, hemoglobin 12, hematocrit 37, platelet of 232. Chemistry: Sodium 137, potassium 4.1, chloride 99, CO2 26, BUN 35, creatinine 1.8. Blood sugar of 196. His blood culture, urine cultures are negative. Bilateral leg arterial Doppler has normal ABIs. ASSESSMENT: 1. Bilateral leg cellulitis, improving. 2. Right mitchell ulcer. 3. Left internal carotid angioplasty. 4. Insulin-dependent diabetes. 5. Coronary artery disease. 6. Morbid obesity. PLAN: Patient is clinically stable. No TIA noted. He will be transferred to Med/Surg. Encouraged ambulation. Monitor blood sugar. Continue on IV diuretics. He is on statins and he is supposed to be taking Plavix and aspirin for at least 6 months, I will continue that. I will encourage ambulation and I will discontinue vancomycin since his creatinine has gone up. I will continue him on Lasix and Rocephin only and I will encourage ambulation. We will follow up patient in a.m. Possible discharge in a.m. Also follow up . Dot Carney MD
[2018-01-13] MEDS: Insulin Detemir 100 units/ml Vial (Levemir) SC SCH (22:12)
[2018-01-14 06:43] LABS: ALB/GLOB RATIO 1.2 (1.1-1.8)
[2018-01-14] MEDS: Insulin Lispro 1 UNITS/0.01 ML SC SCH ×2 (07:52→11:59)
[2018-01-14] MEDS: Insulin Reg-HIGH-Coverage SC SCH ×2 (07:52→11:59)
[2018-01-14] MEDS: cefTRIAXone 1 gm 1 GM/100 ML BAG IVPB SCH (09:26)
[2018-01-14] MEDS: Potassium Chloride 10 mEq ER Tab PO SCH (09:28)
[2018-01-14] MEDS: Pantoprazole 40 mg EC Tab PO SCH (09:29)
[2018-01-14] MEDS: Mupirocin 2% Ointment 15 GM TUBE TOP SCH (09:32)
[2018-01-14] MEDS: Metoprolol Succinate 100 mg XL Tab PO SCH (09:34)
[2018-01-14 09:36] VITALS: BP 105/58; PULSE 68
[2018-01-14 10:41] VITALS: TEMP 98.7; O2SAT 96
--- NOTE | 2018-01-14 11:26 | CP.PCM.PN ---
Subjective - Date & Time of Evaluation Date of Evaluation: 01/14/18 Time of Evaluation: 11:23 - Subjective Subjective: Podiatry progress note for Dr. Metcalf/ dr siegel 72 yo M with PMHx of HTN, HLD, DM, diabetic neuropathy, hx bladder cancer seen at bedside for recurrent b/l LE cellulitis and wound on the midleg. Patient complains of burning sensation to b/l LE, however is getting better. Denies fevers/chills, headaches, chest pain, palpitations, sob, cough, n/v/d/c Objective - Vital Signs/Intake and Output Vital Signs (last 24 hours): Temp Pulse Resp BP Pulse Ox 98.7 F 68 18 105/58 L 96 01/14/18 06:00 01/14/18 09:34 01/14/18 06:00 01/14/18 09:34 01/14/18 06:00 Intake and Output: 01/14/18 01/14/18 06:59 18:59 Intake Total 240 Balance 240 - Medications Medications: Current Medications Amlodipine Besylate (Norvasc) 10 mg PO DAILY [facility] Last Admin: 01/14/18 09:29 Dose: 10 mg Aspirin (Aspirin Chewable) 81 mg PO DAILY [facility] Last Admin: 01/14/18 09:29 Dose: 81 mg Atorvastatin Calcium (Lipitor) 40 mg PO HS [facility] Last Admin: 01/13/18 21:58 Dose: 40 mg Cadexomer Iodine (Iodosorb) 0 gm TOP DAILY [facility] Clopidogrel Bisulfate (Plavix) 75 mg PO DAILY [facility] Last Admin: 01/14/18 09:29 Dose: 75 mg Fenofibrate (Tricor) 145 mg PO DAILY [facility] Last Admin: 01/14/18 09:28 Dose: 145 mg Finasteride (Proscar) 5 mg PO DAILY [facility] Last Admin: 01/14/18 09:29 Dose: 5 mg Furosemide (Lasix) 40 mg IVP DAILY [facility] Last Admin: 01/14/18 09:28 Dose: 40 mg Gabapentin (Neurontin) 300 mg PO Q8 [facility]; Protocol Last Admin: 01/14/18 05:58 Dose: 300 mg Hydrochlorothiazide (Microzide) 12.5 mg PO DAILY [facility] Last Admin: 01/14/18 09:29 Dose: 12.5 mg Ceftriaxone Sodium (Rocephin 1 Gram Ivpb) 1 gm in 100 mls @ 100 mls/hr IVPB DAILY [facility]; Protocol Last Admin: 01/14/18 09:26 Dose: 100 mls/hr Insulin Detemir (Levemir) 80 unit SC HS [facility] Last Admin: 01/13/18 22:12 Dose: 80 units Insulin Human Lispro (Humalog) 25 units SC ACTID [facility] Last Admin: 01/14/18 07:52 Dose: Not Given Insulin Human Regular (Humulin R High) 0 units SC ACHS [facility]; Protocol Last Admin: 01/14/18 07:52 Dose: Not Given Losartan Potassium (Cozaar) 50 mg PO DAILY [facility] Last Admin: 01/14/18 09:29 Dose: 50 mg Metoprolol Succinate (Toprol Xl) 100 mg PO DAILY [facility] Last Admin: 01/14/18 09:34 Dose: 100 mg Mupirocin (Bactroban Ointment) 1 gm TOP BID [facility] Last Admin: 01/14/18 09:32 Dose: 1 applic Pantoprazole Sodium (Protonix Ec Tab) 40 mg PO DAILY [facility] Last Admin: 01/14/18 09:29 Dose: 40 mg Potassium Chloride (Klor-Con 10) 10 meq PO DAILY [facility] Last Admin: 01/14/18 09:28 Dose: 10 meq - Labs Labs: 01/13/18 09:19 01/14/18 05:30 PT 12.6 SECONDS (9.4-12.5) H 01/12/18 06:45 INR 1.09 01/12/18 06:45 APTT 30.6 Seconds (25.1-36.5) 01/12/18 06:45 - Constitutional Appears: Well, Non-toxic, No Acute Distress - Head Exam Head Exam: ATRAUMATIC, NORMOCEPHALIC - Extremities Exam Additional comments: Right lower extremity exam: Vascular: DP/PT 2/4, CFT <3 secs x5, TG warm to warm from proximal leg to distal tip of toes, minimal edema and erythema noted on the lateral aspect of the midleg Derm: superficial ulceration to lateral aspect of the mid legis noted with hypergranular base, no malodor, no drainage noted, periwound erythema and edema noted. Ortho: pain on palpation to the wound NeurO: protective sensation diminished via ipswich - Neurological Exam Neurological Exam: Alert, Awake, Oriented x3 - Psychiatric Exam Psychiatric exam: Normal Affect - Skin Skin Exam: Normal Color Assessment and Plan - Assessment and Plan (Free Text) Assessment: 72 yo male seen at bedside for full thickness ulceration on the left mid leg with periwound cellulitis; resolving Plan: Patient seen and evaluated Chart, labs and vitals reviewed; afebrile and absent leukocytosis Wound cultures taken and ordered; no growth Left lower extremity arterial ultrasound ordered: normal christy/pvr at rest Venous ultrasound ordered: no DVT Wound dressed with optifoam Iodosorb ordered; wound to be dressed with iodosorb and DSD QOD Patient stable for discharge; please dress wound daily with silver dressing or iodosorb and DSD QOD Patient will follow up with Dr. Metcalf in the wound care center upon discharge within a week Podiatry will follow the patient while in house
--- NOTE | 2018-01-15 09:14 | DS ---
HISTORY OF PRESENT ILLNESS: The patient is 72 years old who was admitted with bilateral leg swelling and had a right mitchell discharging ulcer, has been on IV antibiotics, diuretics, did well. The patient also had critical stenosis in the left internal carotid that he underwent angioplasty. He was kept overnight in ICU, did well and he was transferred back to [facility] yesterday, doing well. PHYSICAL EXAMINATION: GENERAL: He is awake, alert, oriented and communicative. VITAL SIGNS: He is afebrile, pulse 60, respirations 18 and blood pressure 105/58. LUNGS: Bilateral fair airflow. No rhonchi or crackle. HEART: S1 and S2 audible. ABDOMEN: Soft and nontender. No rebound. No guarding. NEUROLOGIC: He is awake, alert, oriented and communicative. LABORATORY DATA: WBC is 7.7, hemoglobin 12, hematocrit 37 and platelets 232. Chem-7; sodium 136, potassium 3.9, chloride 99, CO2 of 27, BUN 42, creatinine 2.3 and blood sugar of 201. ASSESSMENT: 1. Bilateral leg cellulitis. 2. Right mitchell ulcer. 3. Morbid obesity. 4. Status post left carotid angioplasty. 5. Insulin-dependent diabetes. 6. Hypertension. 7. Hyperlipidemia. PLAN: The patient is being discharged home. There is no more need of antibiotic. He is advised have supportive stocking all the time and he is advised to continue Plavix and aspirin for next six months . Dot Carney MD
[2018-01-15] MEDS ORDERED: CADEXOMER IODINE 0.9% GEL 10G TOP SCH (10:00)
== END 2018-01-14 16:16 | disposition home or self-care (01) | DRG 571 ==
LOC: ED 17:12 → ERH 20:35 → 5RSO 21:49 → OBSVTOIN 01-10 15:00 → INTOOBSV 01-11 19:12 → OBSVTOIN 01-11 19:12 → CCU 01-12 10:36 → 3RNO 01-13 16:29
PROVIDERS: ADMIT Internal Medicine; ATTEND Internal Medicine
PROC: 0JBP0ZZ Excision of Left Lower Leg Subcutaneous Tissue and Fascia, Open Approach (ICD-10-PCS; principal; 2018-01-11)
PROC: 037L3DZ Dilation of Left Internal Carotid Artery with Intraluminal Device, Percutaneous Approach (ICD-10-PCS; 2018-01-12)
PROC: 037 Upper Arteries, Dilation (ICD-10-PCS; 2018-01-12)
PROC: B31G1ZZ Fluoroscopy of Bilateral Vertebral Arteries using Low Osmolar Contrast (ICD-10-PCS; 2018-01-12)
PROC: B3161ZZ Fluoroscopy of Right Internal Carotid Artery using Low Osmolar Contrast (ICD-10-PCS; 2018-01-12)
DX: L03.116 Cellulitis of left lower limb (principal); L97.225 Non-pressure chronic ulcer of left calf with muscle involvement without evidence of necrosis; L97.819 Non-pressure chronic ulcer of other part of right lower leg with unspecified severity; L03.115 Cellulitis of right lower limb; I65.22 Occlusion and stenosis of left carotid artery; E11.40 Type 2 diabetes mellitus with diabetic neuropathy, unspecified; E11.65 Type 2 diabetes mellitus with hyperglycemia; I11.0 Hypertensive heart disease with heart failure; I25.10 Atherosclerotic heart disease of native coronary artery without angina pectoris; N28.9 Disorder of kidney and ureter, unspecified; F17.200 Nicotine dependence, unspecified, uncomplicated; E78.5 Hyperlipidemia, unspecified; E11.622 Type 2 diabetes mellitus with other skin ulcer; E66.01 Morbid (severe) obesity due to excess calories; Z68.33 Body mass index [BMI] 33.0-33.9, adult; Z79.4 Long term (current) use of insulin; Z91.19 Patient's noncompliance with other medical treatment and regimen; Z85.51 Personal history of malignant neoplasm of bladder; Z95.1 Presence of aortocoronary bypass graft